=== PATIENT | male | born 1950 | race Caucasian/White ===

== ENCOUNTER → 2017-04-17 | Outpatient (CLI) | payer BC ==
[~2017-04-17] MED LIST: ASPI-435 PO; ATOR-26 PO; CINN1CAP2 PO; FISHOIL PO; GLIP-197 PO; LISI-725 PO; METF-384 PO; MULT-506 PO; NITR0.4S UT
[2017-04-17 09:38] LABS: HEMATOCRIT 50.4 % (42-52); MEAN CELL VOLUME 90.6 fL (80-100); MEAN CORPUSCULAR HGB CONC 33.1 g/dl (32-36); PLATELET COUNT 193 K/uL (130-400); RED BLOOD COUNT 5.56 M/uL (4.7-6.1); WHITE BLOOD COUNT 6.73 K/uL (4.8-10.8)
[2017-04-17 09:56] LABS: ESTIMATED AVERAGE GLUCOSE 163 mg/dl; HA1C FLAG Normal (Normal)
[2017-04-17 10:10] LABS: PROSTATE SPECIFIC ANTIGEN 1.03 ng/ml (0.000-4.000)
--- NOTE | 2017-04-22 11:16 | CODING QUERY MEDICAL NECESSITY ---
SUPPORTING DIAGNOSIS NEEDED A supporting diagnosis is required for the test/procedure performed on this patient in order for us to be reimbursed by the patient's insurance. Please provide a supporting diagnosis for the following test/procedure listed below next to the test name along with your signature. *If there is no additional diagnosis for this patient that would support the following test/procedure please document that below next to the test/procedure. Test(s)/Procedure(s) that require a supporting diagnosis: * PSA DIAGNOSIS: Provider Signature: Date: Thank you Erika Carson [employer] Once completed, please kindly fax back to [phone] For questions please call [phone]
== END | disposition home or self-care (01) ==
LOC: C.LAB 08:43
PROVIDERS: ATTEND Internal Medicine
DX: Z00.00 Encounter for general adult medical examination without abnormal findings (principal); I10 Essential (primary) hypertension; E78.5 Hyperlipidemia, unspecified; E11.8 Type 2 diabetes mellitus with unspecified complications; Z12.5 Encounter for screening for malignant neoplasm of prostate

== ENCOUNTER → 2017-10-08 | Outpatient (CLI) | payer BC ==
[2017-10-09 07:36] LABS: HEMOGLOBIN A1C 7.7 % (4.5-5.6)
== END | disposition home or self-care (01) ==
LOC: C.LAB1850 15:22
PROVIDERS: ATTEND Internal Medicine
DX: E11.8 Type 2 diabetes mellitus with unspecified complications (principal)

== ENCOUNTER → 2018-01-06 | Outpatient (CLI) | payer BC | END | disposition home or self-care (01) | LOC: C.LAB 17:14 | PROVIDERS: ATTEND Internal Medicine | DX: R21 Rash and other nonspecific skin eruption (principal) ==

== ENCOUNTER → 2018-01-07 | Outpatient (CLI) | payer OTHER, BC | END | disposition home or self-care (01) | LOC: C.CPL 09:04 | DX: S83.232D Complex tear of medial meniscus, current injury, left knee, subsequent encounter (principal); X58.XXXD Exposure to other specified factors, subsequent encounter ==

== ENCOUNTER → 2018-01-07 | Outpatient (CLI) | payer BC ==
[2018-01-07 10:03] LABS: HEMOGLOBIN A1C 7.8 % (4.5-5.6)
== END | disposition home or self-care (01) ==
LOC: C.LAB 09:02
PROVIDERS: ATTEND Internal Medicine
DX: E11.8 Type 2 diabetes mellitus with unspecified complications (principal)

== ENCOUNTER 2024-07-06 12:01 | Inpatient (IN) ==
[2024-07-06] MEDS: ALBUT/IPRATROP 3MG/0.5MG NEB 3 ML VIAL NEB STA (12:26)
[2024-07-06] MEDS: methylPREDNISolone 125 MG/2 ML VIAL IV STA (12:26)
[2024-07-06 12:49] LABS: iSTAT Creatinine 1.3 mg/dl (0.6-1.3); iSTAT Hemoglobin 13.3 g/dl (14.0-18.0); iSTAT Ionized Calcium 1.23 mmol/l (1.12-1.32); iSTAT Potassium 4.6 mmol/L (3.3-5.0)
[2024-07-06 12:50] LABS: Basophils # (auto) 0.06 K/uL (0.00-0.20); Basophils % (auto) 0.6 %; Eosinophils # (auto) 0.13 K/uL (0.00-0.50); Eosinophils % (auto) 1.2 %; Hematocrit (blood only) 37.6 % (42.0-52.0); Hemoglobin 12.7 g/dl (14.0-18.0); Immature Granulocytes # (auto) 0.05 K/uL (0.01-0.20); Immature Granulocytes % (auto) 0.5 %; Lymphocytes # (auto) 0.72 K/uL (1.20-3.40); Lymphocytes % (auto) 6.8 %; Mean Corpuscular Hemoglobin 30.4 pg (25.0-34.0); Mean Corpuscular Hgb Conc 33.8 g/dL (32.0-36.0); Mean Platelet Volume 9.6 fL (9.4-12.4); Monocytes # (auto) 0.72 K/uL (0.11-0.59); Monocytes % (auto) 6.8 %; Neutrophils # (auto) 8.87 K/uL (1.40-6.50); Neutrophils % (auto) 84.1 %; Platelet Count 290 K/uL (130-400); RDW Coefficient of Variation 13.4 % (11.5-14.5); RDW Standard Deviation 44.6 fL (36.4-46.3); Red Blood Count 4.18 M/uL (4.70-6.10); White Blood Count 10.55 K/ul (4.8-10.8)
[2024-07-06] MEDS: OPTIRAY 320 125ml IV ONE (12:59)
[2024-07-06] MEDS: PIPERACILLIN/TAZOBACTAM 4.5 GM/120 ML BAG IV ONE (13:11)
[2024-07-06 13:13] LABS: BUN Creatinine Ratio 13.5 (10-20); Calcium 9.6 mg/dl (8.6-10.3); Creatinine Clr Calc Pharmacy 49.5 ml/min; Potassium 4.6 mmol/L (3.5-5.1); Troponin I High Sensitivity 10.4 pg/ml (0-20)
[2024-07-06 13:17] LABS: Partial Thromboplastin Ratio 1.1; Partial Thromboplastin Time 29 Seconds (21-31); Prothrombin Time 10.4 Seconds (9.0-12.0)
[2024-07-06 13:25] LABS: Influenza A virus by PCR Negative (Neg); Influenza B virus by PCR Negative (Neg); RSV by PCR Negative (Neg); SARS CoV2 RNA(COVID-19) Ceph NEGATIVE (Negative)
--- NOTE | 2024-07-06 13:33 | CT Scan Report ---
CT angio chest PE protocol CT DOSE: 813.61 mGy.cm HISTORY: 73 years-old Male with Chest Pain, eval for PE. Acute chest pain and shortness of breath TECHNIQUE: Multiple CTA images of the chest were obtained after the intravenous administration of 119 ml Optiray. Coronal and sagittal MIPS were obtained from the axial data set and were submitted for review. All measurements were obtained according to NASCET criteria. A dose lowering technique was u tilized adhering to the principles of ALARA. COMPARISON: Chest radiograph of same day, chest CT 09/23/2023, 04/24/2024, PET/CT 06/13/2023 FINDINGS: CTA: Mild cardiomegaly. Trace pericardial effusion. Extensive coronary artery calcifications. No thoracic aortic aneurysm or dissection. Mild dilation of the pulmonary artery may represent pulmonary hyperten rosetta. Left IJ Adtldb-m-Sxoj catheter distal tip terminates within the left brachiocephalic vein just proximal to the confluence with the superior vena cava No pulmonary emboli identified. CT CHEST: Study is degraded by respiratory motion artifacts. 4.6 cm chronic right perihilar consolidation with involvement of the right upper lung redemonstrated. Pulmonary emphysema with bronchial wall thickenin g. There is a small left pleural effusion. Patchy multifocal left lung airspace opacities with irregu lar 3.9 Center focus of consolidation within the left lower lobe on image 120. Findings are new from 04/24/2024. Respiratory motion artifact limits the study. Contracted gallbladder. No acute upper abdominal abnormality. No acute fracture. No destructive bone lesions identified. IMPRESSION: 1. Study degraded by respiratory motion artifact. No pulmonary emboli identified. 2. Multifocal airspace opacities throughout the left lung compatible with multifocal pneumonia. Follo w-up chest CT after treatment course is needed in order to document resolution. 3. Small left parapneumonic effusion. 4. Unchanged irregular right perihilar/right upper lung consolidation, likely representing treated di sease. 5. Emphysema. 6. No lymphadenopathy. ACT 112: Negative or not required by law. The above report was generated using voice recognition software. It may contain grammatical, syntax o r spelling errors. Electronically signed by: Phoenix Brewer M.D. 07/06/2024 1:31 PM
--- NOTE | 2024-07-06 13:47 | XRay Report ---
XR chest 1V portable HISTORY: 73 years-old Male Chest pain, nonspecific COMPARISON: CTA chest of same day TECHNIQUE: AP view the chest FINDINGS: Cardiac silhouette is within normal limits. Chronic right perihilar/upper lobe opacity compatible wit h treated disease. Pulmonary emphysema. Multifocal airspace opacities throughout the left lung. Prior resection of the distal right clavicle. Probable chronic healed right clavicular fracture deformity. Unchanged positioning of the left pectoral Jprglx-y-Hrlx catheter. IMPRESSION: Multifocal left lung pneumonia. ACT 112: Negative or not required by law. The above report was generated using voice recognition software. It may contain grammatical, syntax o r spelling errors. Electronically signed by: Phoenix Brewer M.D. 07/06/2024 1:46 PM
[2024-07-06] MEDS ORDERED: PHARMACY GLYCEMIC MGMT CONSULT PRN (13:52)
--- NOTE | 2024-07-06 13:55 | History & Physical Report ---
Date of Service July 06, 2024 Assessment & Plan (1) Multifocal pneumonia: Plan: Worsening SR, productive cough, hemoptysis x 2 weeks CXR on arrival revealed multifocal left lower lung pneumonia Chest CTA without acute pulmonary emboli Zosyn x 1 given in the ED Rocephin 2000 mg IV q24h Azithromycin 500 mg p.o. QAM Promote good pulmonary hygiene A.m. CBC, BMP, mag (2) Sepsis: Plan: Pulmonary source; tachycardic + tachypneic on arrival Lactate 2.1 on arrival, repeat pending LR 1000 mL IV bolus x 1 in the ED Patient is normotensive/hypertensive on arrival and lactate is <4.0; do not feel that he requires additional IV fluids at this time Will encourage p.o. fluid intake in the setting of national IVF shortage Blood cultures drawn Procalcitonin ordered, pending MRSA swab ordered, pending (3) Acute hypoxic respiratory failure: Plan: SpO2 80% on RA on arrival Patient is not on supplemental oxygen at baseline Supplemental oxygen as needed to maintain SpO2 89-92% Continuous pulse oximetry (4) COPD exacerbation: Plan: Solu-Medrol 125 mg x 1 in the ED Solu-Medrol 40 mg IV QAM Guaifenesin 1200 mg p.o. BID for cough DuoNeb 3 mL q6R Flutter valve, incentive spirometry (5) Diabetes mellitus, type 2: Plan: Last A1c at 6.7% on 05/05/2024 Glucose 30 on admission Hold metformin, glipizide Patient reports that he normally takes Levemir 14u QAM Pharmacy glycemic consult in the setting of high-dose steroids SSI + Lantus T2DM diet BSG ACHS Adjust regimen as needed (6) Hypomagnesemia: Plan: Mild; mag 1.5 on arrival Magnesium sulfate 1 g IV x 2 Recheck a.m. mag (7) Hypertension: Plan: Continue amlodipine, losartan Plan [facility] Full code T2DM diet VTE PPx: Lovenox 40 mg SQ q24h History of Present Illness Chief Complaint: SOB/dyspnea Primary Care Provider: Kemar Kinney MD Fermin is a 73-year-old male with PMH of small cell lung cancer, T2DM, CAD, congenital absence of one kidney, HLD, HTN, and COPD. He presented on 07/06 for worsening SOB x 2 weeks. Patient reports that the SOB is only with exertion, and does not occur at rest. However, he has been having substantial productive cough x 2 weeks, and developed hemoptysis over the last week. Patient is not on blood thinners. He reports he has pink/yellow sputum mainly in the mornings, and has been taking Mucinex to break this up. His home pulse ox normally reads around SpO2 88-94%. He does not use supplemental oxygen at baseline. No CPAP at night. He is a former smoker (40 years), but reports that he quit. No recent alcohol use. No sick contacts. Patient took his regular morning medication today, including his Levemir 14u; no recent change in medications. He does report that his albuterol inhaler and DuoNeb do help with his symptoms at home. He also used a flutter valve this morning. While he denies orthopnea, he does report that he has coughing fits whenever he lies on his right side. No prior history of DVT/PE to his knowledge. Patient is tachycardic at 106 bpm at time of admission; SpO2 95% on 5L oxymask. ED course: DuoNeb 3 mL Methylprednisolone 125 mg IV Zosyn 4.5 g IV ROS: Patient endorses worsening SR, wheezing, productive cough (yellow / pink sputum), and hemoptysis (mainly in the mornings). Patient denies fever, chills, night-sweats, dizziness/lightheadedness, BARKER, syncope, chest pain, pleuritic CP, SOB at rest, orthopnea, abdominal pain, N/V/D, changes in urinary/bowel habits, dysuria, blood in the urine or stool, or numbness or tingling in the arms or legs. Allergies Allergy/AdvReac Type Severity Reaction Status Date / Time levofloxacin AdvReac Intermediate Hallucinati Verified 07/06/24 14:42 ng atorvastatin AdvReac myalgia Verified 07/06/24 14:42 dulaglutide [From Trulicity] AdvReac Nausea Verified 07/06/24 14:42 empagliflozin AdvReac Elevated Verified 07/06/24 14:42 [From Jardiance] creatinine pravastatin AdvReac myalgia Verified 07/06/24 14:42 Home Medications Medication Instructions Recorded Confirmed Type blood sugar diagnostic (OneTouch #10 ea 06/29/20 05/05/24 History Ultra Blue Test Strip) nitroglycerin 0.4 mg sublingual 1 mg (2.5 x 0.4 mg) sublingual 12/14/21 07/06/24 Rx tablet (Nitrostat) DIRECTED PRN Angina #60 tabs pen needle, diabetic 32 gauge x #100 ea 01/31/22 05/05/24 Rx 5/32" (BD Ultra-Fine Ela Pen Needle) inhalational spacing device #1 ea 10/19/22 05/05/24 Rx (BreatheRite MDI Spacer) cinnamon bark extract 500 mg tablet 500 mg PO QAM 12/25/22 07/06/24 History vit C 250 mg-vit E 90 mg-zinc 40 1 tab PO DAILY 12/25/22 07/06/24 History mg-copper 1 im-yjlqti-vroalv capsule (PreserVision AREDS-2) sertraline 25 mg tablet 25 mg PO QAM 04/03/23 07/06/24 History Flutter Valve #1 ea 04/04/23 05/05/24 Rx glipizide 10 mg tablet 10 mg PO BID #180 tabs 07/30/23 07/06/24 Rx metformin 1,000 mg tablet 1,000 mg PO BID #180 tabs 10/23/23 07/06/24 Rx albuterol sulfate 90 mcg/actuation 1 - 2 inh inhalation Q4H PRN 02/20/24 07/06/24 Rx aerosol inhaler shortness of breath or wheezing #8.5 grams Levemir FlexPen 100 unit/mL (3 mL) 14 - 16 unit (0.14 - 0.16 mL) 03/11/24 07/06/24 Rx solution subcutaneous insulin pen subcut QAM #15 mL (insulin detemir U-100) losartan 100 mg tablet 100 mg PO QAM #90 tabs 04/27/24 07/06/24 Rx albuterol sulfate 2.5 mg/0.5 mL 2.5 mg (0.5 mL) inhalation Q6H PRN 06/23/24 07/06/24 Rx solution for nebulization shortness of breath or wheezing #30 ea amlodipine 10 mg tablet 10 mg PO QAM 07/06/24 07/06/24 History aspirin 81 mg tablet,delayed 81 mg PO QAM 07/06/24 07/06/24 History release budesonide-formoterol HFA 80 1 inh inhalation BID PRN Shortness 07/06/24 07/06/24 History mcg-4.5 mcg/actuation aerosol Of Breath Or Wheezing inhaler (Symbicort) ipratropium 0.5 mg-albuterol 3 mg 3 ml inhalation BID 07/06/24 07/06/24 History (2.5 mg base)/3 mL nebulization soln Past Med/Surg History Problem List (Updated 07/07/24 @ 11:16 by Ivan Vivas PA-C) Hemoptysis Parapneumonic effusion Pneumonia (Acute) Hypoxia (Acute) Hypomagnesemia Acute hypoxic respiratory failure Sepsis COPD exacerbation Multifocal pneumonia Diabetes mellitus, type 2 IDDM 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) Hyperlipidemia (Chronic) Hypertension (Chronic) Diverticulosis (Chronic) Arteriosclerotic cardiovascular disease (ASCVD) (Chronic) Vitamin B12 deficiency (Chronic) Vitamin D deficiency (Chronic) SOB (shortness of breath) (Chronic) Proteinuria (Chronic) Pleural thickening (Chronic) Peyronie's disease (Chronic) Diabetes mellitus type 2 with complications (Chronic) Health care maintenance COPD (chronic obstructive pulmonary disease) Pulmonary nodule Statin myopathy (Acute) Low TSH level Abnormal chest CT Abnormal PET of right lung Small cell lung cancer in adult (Chronic) Biopsy on 11/30/22 Lumbar spinal stenosis (Chronic) Chronic bronchitis with emphysema (Chronic) History of cardiac catheterization (Acute) 2011--@ [facility]--with 1 stent placed CAD (coronary artery disease) (Acute) S/p stent to LCx 2011 Known RCA occlusion per cardio records Follows with Dr. Ya Congenital absence of one kidney (Chronic) Medical History Right-sided chest pain Status post chemotherapy currently on chemo every 2 weeks Esophagitis Elevated serum creatinine Lung nodule Lung cancer Dizziness Myalgia due to statin Current smoker Skin lesion of face Hearing deficit Chronic obstructive pulmonary disease inhalers prn Abnormal TSH TSH low at 0.28 but Free T4 WNL 04/2022 Diabetic peripheral neuropathy Smokes less than 1/2 pack per day Peyronie's disease High cholesterol HTN (hypertension) Surgical History Port-A-Cath in place (01/16/23) Insertion Access Port with Fluoroscopy, left subclavian (Left) - Santos Acevedo DO History of bronchoscopy 11/201811/30/22 History of lumbar laminectomy History of repair of right rotator cuff History of arthroscopy of left knee History of arthroscopy of right knee meniscus repair Hx of vasectomy History of right inguinal hernia repair History of colonoscopy with polypectomy History of tooth extraction History of heart artery stent 2011 @ [facility] S/P tonsillectomy and adenoidectomy Family History Father , 87yo Diabetes Heart disease Angina pectoris Myocardial infarction Grandmother (Maternal) Colorectal cancer Mother , 80yo Emphysema, unspecified Sister No problems noted. Sister , 3yo Leukemia Sister No problems noted. Sister No problems noted. Sister No problems noted. Sister No problems noted. Son No problems noted. Son No problems noted. Son No problems noted. Daughter No problems noted. Other No family history of adverse response to anesthesia Denies family history of Ovarian cancer Prostate cancer Breast cancer Social History Smoking Status: Never smoker Tobacco Type: Cigarettes Age Started Using Tobacco: 27; Age Quit Using Tobacco: 71; Cigarettes Per Day: 2-3 per day -advised; Second Hand Exposure: No; Do You Dip or Chew Tobacco: No; Tobacco Cessation Education Requested by Patient: No Hx Alcohol Use: No Hx Substance Use: No Preferred Language: Swedish Communication Ability: Effective Visual Impairment: No Limitations Hearing Ability: Use of Hearing Aid Research Contracts Supervisor Required: No Beliefs That Will Affect Care: None marital status: Current Living Situation: Alone current occupational status: retired 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 [employer] How many Children do You have: 0 Other Information That Helps Us Care for You: No Feels Safe at Home: Yes Safety Concerns: Feels Safe At This Time Childhood Exposure to Second-Hand Smoke: Yes Diet: diabetic caffeine: Yes (1 cup/day) during the past year weight has: remained stable Dental Care, Regularly: Yes Physical Activity Frequency: Daily Seatbelt Use: always Sunscreen Use: No Assistive Devices: Glasses Review of Systems Review of Systems: See HPI above Physical Exam Physical Exam: General: Mild respiratory distress; pleasant affect; non-toxic appearing; well- nourished; cooperative; SpO2 91% on 3L NC HEENT: normocephalic, atraumatic; no scleral icterus; PERRLA w/ EOMs intact; vision and hearing grossly intact Neck: supple; no lymphadenopathy; trachea midline Skin: warm, dry without signs of tenting; no cyanosis; no rashes, bruising, lesions, or erythema noted CV: chest wall NTP; RRR; S1/S2 normal; no murmurs/rubs/gallops; pulses intact and symmetric at radial, DP, and PT Lungs: Mild respiratory distress; conversational dyspnea; wheezing; coughing fits; symmetrical chest wall expansion; bibasilar crackles in the lower lung zhu bilaterally (L>R) ABD: Soft, NTP; BS present; no rebound/guarding; no distention MSK: no tics or fasciculations; +2 pitting edema noted in the LEs b/l, nonerythematous Neuro: A&Ox3; normal mood and affect; fluent speech; no focal deficits; sensat ion intact and symmetric in the lower extremities bilaterally Results & Data Results & Data Vital Signs (Past 12 Hours) Vital Signs Temp Pulse Pulse Resp BP BP Pulse Ox 07/06/24 12:37 106 H 07/06/24 12:19 106 H 23 95 07/06/24 12:19 108 H 19 126/73 95 07/06/24 12:19 95 07/06/24 12:03 36.6 C 117 H 22 136/77 80 L O2 Del Method O2 Flow Rate 07/06/24 12:37 07/06/24 12:19 Oxymask 5 07/06/24 12:19 Oxymask 5 07/06/24 12:19 Oxymask 5 07/06/24 12:03 Room Air Laboratory Results Abnormal lab results 07/06/24 07/06/24 Range/Units 12:15 12:23 RBC 4.18 L (4.70-6.10) M/uL Hgb 12.7 L (14.0-18.0) g/dl POC Hgb 13.3 L (14.0-18.0) g/dl Hct 37.6 L (42.0-52.0) % POC Hct 39 L (42-52) % Neut # (Auto) 8.87 H (1.40-6.50) K/uL Lymph # (Auto) 0.72 L (1.20-3.40) K/uL [place] # (Auto) 0.72 H (0.11-0.59) K/uL POC Sodium 133 L (135-144) mmol/L Sodium 131 L (136-145) mmol/L POC Chloride 97 L (101-112) mmol/L POC Total CO2 22 L (24-31) mmol/L Glucose 304 H* (70-99(Fasting)) mg/dl POC Glucose (other) 303 H (70-99) mg/dl Diagnostic Findings Chest CTA 07/06/24 12:07 CT angio chest PE protocol CT DOSE: 813.61 mGy.cm HISTORY: 73 years-old Male with Chest Pain, eval for PE. Acute chest pain and shortness of breath TECHNIQUE: Multiple CTA images of the chest were obtained after the intravenous administration of 119 ml Optiray. Coronal and sagittal MIPS were obtained from the axial data set and were submitted for review. All measurements were obtained according to NASCET criteria. A dose lowering technique was utilized adhering to the principles of ALARA. COMPARISON: Chest radiograph of same day, chest CT 09/23/2023, 04/24/2024, PET/CT 06/13/2023 FINDINGS: CTA: Mild cardiomegaly. Trace pericardial effusion. Extensive coronary artery calcifications. No thoracic aortic aneurysm or dissection. Mild dilation of the pulmonary artery may represent pulmonary hypertension. Left IJ Rcfgle-s-Fwfn catheter distal tip terminates within the left brachiocephalic vein just proximal to the confluence with the superior vena cava No pulmonary emboli identified. CT CHEST: Study is degraded by respiratory motion artifacts. 4.6 cm chronic right perihilar consolidation with involvement of the right upper lung redemonstrated. Pulmonary emphysema with bronchial wall thickening. There is a small left pleural effusion. Patchy multifocal left lung airspace opacities with irregular 3.9 Center focus of consolidation within the left lower lobe on image 120. Findings are new from 04/24/2024. Respiratory motion artifact limits the study. Contracted gallbladder. No acute upper abdominal abnormality. No acute fracture. No destructive bone lesions identified. IMPRESSION: 1. Study degraded by respiratory motion artifact. No pulmonary emboli identified. 2. Multifocal airspace opacities throughout the left lung compatible with multifocal pneumonia. Follow-up chest CT after treatment course is needed in order to document resolution. 3. Small left parapneumonic effusion. 4. Unchanged irregular right perihilar/right upper lung consolidation, likely representing treated disease. 5. Emphysema. 6. No lymphadenopathy. ACT 112: Negative or not required by law. The above report was generated using voice recognition software. It may contain grammatical, syntax or spelling errors. Electronically signed by: Phoenix Brewer M.D. 07/06/2024 1:31 PM Chest X-Ray 07/06/24 12:07 XR chest 1V portable HISTORY: 73 years-old Male Chest pain, nonspecific COMPARISON: CTA chest of same day TECHNIQUE: AP view the chest FINDINGS: Cardiac silhouette is within normal limits. Chronic right perihilar/upper lobe opacity compatible with treated disease. Pulmonary emphysema. Multifocal airspace opacities throughout the left lung. Prior resection of the distal right clavicle. Probable chronic healed right clavicular fracture deformity. Unchanged positioning of the left pectoral Lftojd-s-Dtpo catheter. IMPRESSION: Multifocal left lung pneumonia. ACT 112: Negative or not required by law. The above report was generated using voice recognition software. It may contain grammatical, syntax or spelling errors. Electronically signed by: Phoenix Brewer M.D. 07/06/2024 1:46 PM ECG Additional Comments: ECG revealed sinus tachycardia at 108 bpm; QTc 423 Code Status & VTE Plan Code Status Full code VTE Prophylaxis Plan VTE Prophylaxis will be ordered: Yes Supervising Physician Co-Signing Physician Notes I personally saw and examined the patient. I independently reviewed the labs, EKG, imaging, problem list, medication list, past medical history and family history. I verified all vance points and agree with Zak Baer PA-C with the following exceptions and/or additions: 73 year old presents to the ER with shortness of breath on exertion. Coughing up yellow sputum. No chest pain. O/E HS RRR, no murmurs, Chest - expiratory wheezing, left posterior coarse crackles, Abdo SNT, trace pedal edema A/P Sepsis / COPD exacerbation / multifocal pneumonia - MRSA nasal swab negative. Add biofire PCR, sputum culture ordered, WBC and procalcitonin WNL. Ceftriaxone + azithromycin. Solu-medrol 40mg IV. Duonebs q6h PG Care Time/CCT Total # of Minutes Spent Total Time Spent with Patient: Total time spent is greater than 50% in coordination of care (as documented) at patient's floor/unit and/or counseling patient: Coding [place] [address] INT INP/OBS CARE 3/75MIN Patient Type Established Medical Decision Making High Complexity Diagnoses Multifocal pneumonia J18.9 Sepsis A41.9 Acute hypoxic respiratory failure J96.01 COPD exacerbation J44.1 Diabetes mellitus, type 2 E11.9 Hypomagnesemia E83.42 Hypertension I10
[2024-07-06 14:28] LABS: C Reactive Protein 19.71 mg/dl (0-0.5); Magnesium 1.5 mg/dl (1.7-2.4)
[2024-07-06] MEDS ORDERED: GLUCOSE 10 TAB/TUBE PO PRN ×2 (14:45→17:44)
[2024-07-06] MEDS ORDERED: CARBOHYDRATES FOR HYPOGLYCEMIA PO PRN (14:45)
[2024-07-06] MEDS ORDERED: DEXTROSE 50% 50 ML SYRINGE IV PRN ×2 (14:45→17:44)
[2024-07-06] MEDS ORDERED: GLUCAGON FOR INJ 1 MG VIAL SQ PRN ×2 (14:45→17:44)
[2024-07-06] MEDS ORDERED: GLUCOSE 40% GEL 15 GM TUBE PO PRN ×2 (14:45→17:44)
[2024-07-06] MEDS: LACTATED RINGER'S 1,000 ML IV ONE (14:55)
--- NOTE | 2024-07-06 15:03 | Pharmacy Report ---
Pharmacy Glycemic Short Note 2 - Date of Service July 06, 2024 - Glycemic Short BSG Results (Last 24 hours): 07/06/24 07/06/24 12:15 12:23 Glucose 304 H* POC Glucose (other) 303 H OUTPATIENT ANTIDIABETIC REGIMEN: * Levemir 14-16 units daily (last dose 14 units AM of 07/06) * Glipizide 10mg po bid * Metformin 1000mg po bid HbA1c: 6.7% on 05/05/24 ASSESSMENT: * 73 year old male admitted for multifocal pneumonia/sepsis. On arrival to ED, BSG is > 300 (303 mg/dL) despite already having 14 units of Levemir insulin prior to arrival. He then received 125mg iv methylprednisolone x 1, and is now ordered methylprednisolone 40mg iv q 24 hours. * 10units of Lantus x 1 has been ordered for this afternoon, then Lantus 20 units daily starting tomorrow (increase from his home insulin dosing due to presence of steroids.) * Weight based bolus insulin with a stress factor of 3 has been ordered to start this afternoon, then will be AC and HS. PLAN FOR INPATIENT GLYCEMIC CONTROL: * Hold outpatient diabetes medications * Basal insulin * Lantus 10 units SQ x 1 this afternoon * Lantus 20units SQ daily starting 07/07 * Bolus insulin * NovoLog per scale ACHS or Q6hrs while NPO * Goal Range: Low 110 mg/dL - High 140 mg/dL * Correction Factor: 20 mg/dL/unit * Nutritional / Prandial insulin per carb ratio of 1 unit per 6 grams CHO consumed
[2024-07-06] MEDS: AZITHROMYCIN 250 MG TAB PO ONE (15:18)
[2024-07-06] MEDS: LANTUS PER UNIT CHARGE SC ONE (15:19)
[2024-07-06] MEDS: INSULIN ASPART PER UNIT CHARGE SC ONE (15:19)
[2024-07-06 15:25] LABS: iSTAT Arterial Blood Gas HCO3 22 meg/L (19-24); iSTAT Arterial Blood Gas pCO2 37 mmHg (35-46); iSTAT Arterial Blood Gas pH 7.38 (7.35-7.45); iSTAT Arterial Blood Gas pO2 90 mmHg (80-95); iSTAT Carbon Dioxide 23 mmol/L (24-31); iSTAT Hematocrit 36 % (42-52); iSTAT Hemoglobin 12.2 g/dl (14.0-18.0); iSTAT Potassium 4.6 mmol/L (3.3-5.0); iSTAT Sample Type Arterial; iSTAT Sodium 131 mmol/L (135-144)
[2024-07-06] MEDS: MAGNESIUM SULFATE / D5W 1 GM/100 ML BAG IV SCH (15:39)
[2024-07-06] MEDS ORDERED: FLUTICASONE/VILANTEROL 100/25MCG 14 PUFFS/INHALER INH PRN (17:44)
[2024-07-06] MEDS ORDERED: ACETAMINOPHEN 325 MG TAB PO PRN (17:44)
[2024-07-06] MEDS: INSULIN ASPART PER UNIT CHARGE SC SCH (18:10)
--- NOTE | 2024-07-06 18:15 | Emergency Department Note ---
History of Present Illness General Chief Complaint: Shortness of Breath/Dyspnea Stated Complaint: COUGH, SOB, SPITTING UP BLOOD Time Seen by Provider: 07/06/24 12:06 History of Present Illness Provider Complaint: shortness of breath and cough Onset (ago): day(s) (2) Severity: severe Consistency/Duration: + progressively worsening Relieved By: + nothing Exacerbated By: + exertion and + coughing Known history of: COPD Associated symptoms: + sputum production, + hemoptysis and + chest congestion; no chest pain, no nausea/vomiting or no abdominal pain Treatment prior to arrival: none Related Data Home oxygen amount: none Home Medications Medication Instructions Recorded Confirmed Type blood sugar diagnostic (OneTouch #10 ea 06/29/20 05/05/24 History Ultra Blue Test Strip) nitroglycerin 0.4 mg sublingual 1 mg (2.5 x 0.4 mg) sublingual 12/14/21 07/06/24 Rx tablet (Nitrostat) DIRECTED PRN Angina #60 tabs pen needle, diabetic 32 gauge x #100 ea 01/31/22 05/05/24 Rx 5/32" (BD Ultra-Fine Ela Pen Needle) inhalational spacing device #1 ea 10/19/22 05/05/24 Rx (BreatheRite MDI Spacer) cinnamon bark extract 500 mg tablet 500 mg PO QAM 12/25/22 07/06/24 History vit C 250 mg-vit E 90 mg-zinc 40 1 tab PO DAILY 12/25/22 07/06/24 History mg-copper 1 up-fyclnd-lwifzi capsule (PreserVision AREDS-2) sertraline 25 mg tablet 25 mg PO QAM 04/03/23 07/06/24 History Flutter Valve #1 ea 04/04/23 05/05/24 Rx glipizide 10 mg tablet 10 mg PO BID #180 tabs 07/30/23 07/06/24 Rx metformin 1,000 mg tablet 1,000 mg PO BID #180 tabs 10/23/23 07/06/24 Rx albuterol sulfate 90 mcg/actuation 1 - 2 inh inhalation Q4H PRN 02/20/24 07/06/24 Rx aerosol inhaler shortness of breath or wheezing #8.5 grams Levemir FlexPen 100 unit/mL (3 mL) 14 - 16 unit (0.14 - 0.16 mL) 03/11/24 07/06/24 Rx solution subcutaneous insulin pen subcut QAM #15 mL (insulin detemir U-100) losartan 100 mg tablet 100 mg PO QAM #90 tabs 04/27/24 07/06/24 Rx albuterol sulfate 2.5 mg/0.5 mL 2.5 mg (0.5 mL) inhalation Q6H PRN 06/23/24 07/06/24 Rx solution for nebulization shortness of breath or wheezing #30 ea amlodipine 10 mg tablet 10 mg PO QAM 07/06/24 07/06/24 History aspirin 81 mg tablet,delayed 81 mg PO QAM 07/06/24 07/06/24 History release budesonide-formoterol HFA 80 1 inh inhalation BID PRN Shortness 07/06/24 07/06/24 History mcg-4.5 mcg/actuation aerosol Of Breath Or Wheezing inhaler (Symbicort) ipratropium 0.5 mg-albuterol 3 mg 3 ml inhalation BID 07/06/24 07/06/24 History (2.5 mg base)/3 mL nebulization soln Allergies Allergy/AdvReac Type Severity Reaction Status Date / Time levofloxacin AdvReac Intermediate Hallucinati Verified 07/06/24 14:42 ng atorvastatin AdvReac myalgia Verified 07/06/24 14:42 dulaglutide [From Trulicity] AdvReac Nausea Verified 07/06/24 14:42 empagliflozin AdvReac Elevated Verified 07/06/24 14:42 [From Jardiance] creatinine pravastatin AdvReac myalgia Verified 07/06/24 14:42 Past Med/Surg History Problem List (Updated 07/06/24 @ 18:15 by Berto Huizar MD) Pneumonia (Acute) Hypoxia (Acute) Hypomagnesemia Acute hypoxic respiratory failure Sepsis COPD exacerbation Multifocal pneumonia Diabetes mellitus, type 2 IDDM 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) Hyperlipidemia (Chronic) Hypertension (Chronic) Diverticulosis (Chronic) Arteriosclerotic cardiovascular disease (ASCVD) (Chronic) Vitamin B12 deficiency (Chronic) Vitamin D deficiency (Chronic) SOB (shortness of breath) (Chronic) Proteinuria (Chronic) Pleural thickening (Chronic) Peyronie's disease (Chronic) Diabetes mellitus type 2 with complications (Chronic) Health care maintenance COPD (chronic obstructive pulmonary disease) Pulmonary nodule Statin myopathy (Acute) Low TSH level Abnormal chest CT Abnormal PET of right lung Small cell lung cancer in adult (Chronic) Biopsy on 11/30/22 Lumbar spinal stenosis (Chronic) Chronic bronchitis with emphysema (Chronic) History of cardiac catheterization (Acute) 2011--@ [facility]--with 1 stent placed CAD (coronary artery disease) (Acute) S/p stent to LCx 2011 Known RCA occlusion per cardio records Follows with Dr. Ya Congenital absence of one kidney (Chronic) Medical History Right-sided chest pain Status post chemotherapy currently on chemo every 2 weeks Esophagitis Elevated serum creatinine Lung nodule Lung cancer Dizziness Myalgia due to statin Current smoker Skin lesion of face Hearing deficit Chronic obstructive pulmonary disease inhalers prn Abnormal TSH TSH low at 0.28 but Free T4 WNL 04/2022 Diabetic peripheral neuropathy Smokes less than 1/2 pack per day Peyronie's disease High cholesterol HTN (hypertension) Surgical History Port-A-Cath in place (01/16/23) Insertion Access Port with Fluoroscopy, left subclavian (Left) - Santos Acevedo DO History of bronchoscopy 11/201811/30/22 History of lumbar laminectomy History of repair of right rotator cuff History of arthroscopy of left knee History of arthroscopy of right knee meniscus repair Hx of vasectomy History of right inguinal hernia repair History of colonoscopy with polypectomy History of tooth extraction History of heart artery stent 2011 @ [facility] S/P tonsillectomy and adenoidectomy Family History Father , 87yo Diabetes Heart disease Angina pectoris Myocardial infarction Grandmother (Maternal) Colorectal cancer Mother , 80yo Emphysema, unspecified Sister No problems noted. Sister , 3yo Leukemia Sister No problems noted. Sister No problems noted. Sister No problems noted. Sister No problems noted. Son No problems noted. Son No problems noted. Son No problems noted. Daughter No problems noted. Other No family history of adverse response to anesthesia Denies family history of Ovarian cancer Prostate cancer Breast cancer Social History Smoking Status: Never smoker Tobacco Type: Cigarettes Age Started Using Tobacco: 27; Age Quit Using Tobacco: 71; Cigarettes Per Day: 2-3 per day -advised; Second Hand Exposure: No; Do You Dip or Chew Tobacco: No; Tobacco Cessation Education Requested by Patient: No Hx Alcohol Use: No Hx Substance Use: No Preferred Language: Moldovan Communication Ability: Effective Visual Impairment: No Limitations Hearing Ability: Use of Hearing Aid Monitor Car Operator Required: No Beliefs That Will Affect Care: None marital status: Current Living Situation: Alone current occupational status: retired 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 [employer] How many Children do You have: 0 Other Information That Helps Us Care for You: No Feels Safe at Home: Yes Safety Concerns: Feels Safe At This Time Childhood Exposure to Second-Hand Smoke: Yes Diet: diabetic caffeine: Yes (1 cup/day) during the past year weight has: remained stable Dental Care, Regularly: Yes Physical Activity Frequency: Daily Seatbelt Use: always Sunscreen Use: No Assistive Devices: Glasses and Hearing Aid - Bilateral Physical Exam 2 Vital Signs: Vital Signs - 24 hr 07/06/24 12:03 07/06/24 12:19 07/06/24 12:19 Temperature 36.6 C Temperature Source Temporal Artery Sc an Pulse Rate 117 H Pulse Rate [Apical ] 108 H Pulse Rate from Sp O2 Sensor Respiratory Rate 22 19 Respiratory Effort / Characteristics Non-Labored Sponta neous Respiratory Depth Normal Blood Pressure 136/77 Blood Pressure [Ri ght Arm] 126/73 Blood Pressure Shakira n 96 Blood Pressure Shakira n [Right Arm] 90 Blood Pressure Pos ition Sitting Pulse Oximetry 80 L 95 95 Oxygen Delivery Me thod Room Air Oxymask Oxymask Oxygen Flow Rate 5 5 Sepsis Recent Feve r Within 48 Hours No Sepsis New/Unexpla ined Change in Men caesar Status No Sepsis Action Take n by Nursing Physician Notified 07/06/24 12:19 07/06/24 12:37 07/06/24 12:42 Temperature Temperature Source Pulse Rate 106 H 106 H 103 H Pulse Rate [Apical ] Pulse Rate from Sp O2 Sensor 103 H Respiratory Rate 23 24 Respiratory Effort / Characteristics Respiratory Depth Blood Pressure Blood Pressure [Ri ght Arm] Blood Pressure Shakira n Blood Pressure Shakira n [Right Arm] Blood Pressure Pos ition Pulse Oximetry 95 96 Oxygen Delivery Me thod Oxymask Oxygen Flow Rate 5 Sepsis Recent Feve r Within 48 Hours Sepsis New/Unexpla ined Change in Men caesar Status Sepsis Action Take n by Nursing 07/06/24 13:09 07/06/24 13:15 07/06/24 13:24 Temperature Temperature Source Pulse Rate 103 H 102 H 100 H Pulse Rate [Apical ] Pulse Rate from Sp O2 Sensor 102 H 101 H 100 H Respiratory Rate 21 16 24 Respiratory Effort / Characteristics Respiratory Depth Blood Pressure Blood Pressure [Ri ght Arm] Blood Pressure Shakira n Blood Pressure Shakira n [Right Arm] Blood Pressure Pos ition Pulse Oximetry 96 97 96 Oxygen Delivery Me thod Oxygen Flow Rate Sepsis Recent Feve r Within 48 Hours Sepsis New/Unexpla ined Change in Men caesar Status Sepsis Action Take n by Nursing 07/06/24 13:30 07/06/24 13:30 07/06/24 13:30 Temperature Temperature Source Pulse Rate 99 H Pulse Rate [Apical ] Pulse Rate from Sp O2 Sensor 98 H Respiratory Rate 22 Respiratory Effort / Characteristics Respiratory Depth Blood Pressure 132/77 132/77 Blood Pressure [Ri ght Arm] Blood Pressure Shakira n 90 90 Blood Pressure Shakira n [Right Arm] Blood Pressure Pos ition Pulse Oximetry 96 Oxygen Delivery Me thod Oxygen Flow Rate Sepsis Recent Feve r Within 48 Hours Sepsis New/Unexpla ined Change in Men caesar Status Sepsis Action Take n by Nursing 07/06/24 13:51 07/06/24 13:57 07/06/24 14:00 Temperature Temperature Source Pulse Rate 100 H 100 H Pulse Rate [Apical ] Pulse Rate from Sp O2 Sensor 100 H 100 H Respiratory Rate 24 21 Respiratory Effort / Characteristics Respiratory Depth Blood Pressure 131/78 Blood Pressure [Ri ght Arm] Blood Pressure Shakira n 95 Blood Pressure Shakira n [Right Arm] Blood Pressure Pos ition Pulse Oximetry 96 95 Oxygen Delivery Me thod Oxygen Flow Rate Sepsis Recent Feve r Within 48 Hours Sepsis New/Unexpla ined Change in Men caesar Status Sepsis Action Take n by Nursing 07/06/24 14:00 07/06/24 14:00 07/06/24 14:03 Temperature Temperature Source Pulse Rate 100 H Pulse Rate [Apical ] Pulse Rate from Sp O2 Sensor 101 H Respiratory Rate 19 Respiratory Effort / Characteristics Respiratory Depth Blood Pressure 131/78 131/78 Blood Pressure [Ri ght Arm] Blood Pressure Shakira n 95 95 Blood Pressure Shakira n [Right Arm] Blood Pressure Pos ition Pulse Oximetry 95 Oxygen Delivery Me thod Oxygen Flow Rate Sepsis Recent Feve r Within 48 Hours Sepsis New/Unexpla ined Change in Men caesar Status Sepsis Action Take n by Nursing 07/06/24 14:12 07/06/24 14:18 07/06/24 14:30 Temperature Temperature Source Pulse Rate 101 H 100 H Pulse Rate [Apical ] Pulse Rate from Sp O2 Sensor 103 H 100 H Respiratory Rate 19 19 Respiratory Effort / Characteristics Respiratory Depth Blood Pressure 132/73 Blood Pressure [Ri ght Arm] Blood Pressure Shakira n 90 Blood Pressure Shakira n [Right Arm] Blood Pressure Pos ition Pulse Oximetry 95 93 Oxygen Delivery Me thod Oxygen Flow Rate Sepsis Recent Feve r Within 48 Hours Sepsis New/Unexpla ined Change in Men caesar Status Sepsis Action Take n by Nursing 07/06/24 14:33 Temperature Temperature Source Pulse Rate 103 H Pulse Rate [Apical ] Pulse Rate from Sp O2 Sensor 103 H Respiratory Rate 17 Respiratory Effort / Characteristics Respiratory Depth Blood Pressure Blood Pressure [Ri ght Arm] Blood Pressure Shakira n Blood Pressure Shakira n [Right Arm] Blood Pressure Pos ition Pulse Oximetry 94 Oxygen Delivery Me thod Oxygen Flow Rate Sepsis Recent Feve r Within 48 Hours Sepsis New/Unexpla ined Change in Men caesar Status Sepsis Action Take n by Nursing Physical Exam: Physical Exam GENERAL: oriented to person, place, and time. appears well-developed and well- nourished. HENT: Exam performed. - Head: Normocephalic and atraumatic. EYES: Conjunctivae and EOM are normal. Right eye exhibits no discharge. Left eye exhibits no discharge. No scleral icterus. NECK: Normal range of motion. Neck supple. No JVD present. CV: Normal rate, regular rhythm, normal heart sounds and intact distal pulses. There is no peripheral edema. Palpable radial pulses bue. PULM/CHEST: Expiratory wheezes bilaterally. ABD: The abdomen is soft. There is no tenderness. NEURO: Motor and sensation grossly intact. SKIN: Skin is warm and dry. He is not diaphoretic. PSYCH: normal mood and affect. Behavior is normal. Judgment and thought content normal. Course Course 1206: The patient was evaluated in room A11. A complete history and physical exam was performed Cardiac monitoring: An order was placed for continuous cardiac monitoring. The monitor shows a rate of 110 with sinus tachycardia rhythm interpreted by me Patient found to be hypoxic on room air. Supplemental oxygen was applied to the patient which improved the patient's oxygen saturation. 1300: Chest x-ray shows left-sided pneumonia. Patient be treated with IV antibiotics. 1345: Vital signs stable on supplemental oxygen. Labs are unremarkable. Imaging shows no pulmonary embolus but does show left-sided infiltrate. Patient treated with IV antibiotics and will be admitted to the [place] [facility] team. Administered Medications Magnesium Sulfate/Dextrose (Magnesium Sulfate / D5w) 1 gm in 100 mls @ 50 mls/hr IV Q2H IQRA Stop: 07/06/24 18:59 Last Admin: 07/06/24 17:47 Dose: 50 mls/hr Documented By: Infusion: 07/06/24 17:39 Dose: Infused Documented By: Admin: 07/06/24 15:39 Dose: 50 mls/hr Documented By: NELDA Discontinued Medications Albuterol (Albut/Ipratrop 3mg/0.5mg Neb 3 Ml Vial) 3 ml NEB NOW STA; Protocol Stop: 07/06/24 12:12 Last Admin: 07/06/24 12:26 Dose: 3 ml Documented By: NELDA Azithromycin (Azithromycin 250 Mg Tab) 500 mg PO NOW ONE Stop: 07/06/24 14:43 Last Admin: 07/06/24 15:18 Dose: 500 mg Documented By: NELDA Piperacillin Sod/Tazobactam Sod (Zosyn) 4.5 gm in 120 mls @ 240 mls/hr IV NOW ONE Stop: 07/06/24 13:34 Last Infusion: 07/06/24 13:47 Dose: Infused Documented By: Admin: 07/06/24 13:11 Dose: 240 mls/hr Documented By: NELDA Lactated Ringer's (Lr) 1,000 mls @ 999 mls/hr IV .Q1H1M ONE Stop: 07/06/24 14:54 Last Infusion: 07/06/24 17:50 Dose: Infused Documented By: Admin: 07/06/24 14:55 Dose: 999 mls/hr Documented By: NELDA Insulin Aspart (Insulin Aspart Per Unit Charge) 0 units SC ONE ONE Stop: 07/06/24 15:01 Last Admin: 07/06/24 15:19 Dose: 9 units Documented By: NELDA Co-signed By: MARICEL Insulin Glargine (Lantus Per Unit Charge) 10 units SC ONE ONE Stop: 07/06/24 15:01 Last Admin: 07/06/24 15:19 Dose: 10 units Documented By: NELDA Co-signed By: MARICEL Ioversol (Optiray 320 125ml) 120 ml IV ONCE ONE Stop: 07/06/24 12:59 Last Admin: 07/06/24 12:59 Dose: 120 ml Documented By: VARSHA Methylprednisolone (Methylprednisolone 125 Mg/2 Ml Vial) 125 mg IV NOW STA Stop: 07/06/24 12:12 Last Admin: 07/06/24 12:26 Dose: 125 mg Documented By: NELDA Medical Decision Making Laboratory Data Attestation: I reviewed the patient's lab results. 07/06/24 12:15 07/06/24 12:15 Lab Results 07/06/24 07/06/24 07/06/24 Range/Units 12:15 12:20 12:23 WBC 10.55 (4.8-10.8) K/ul RBC 4.18 L (4.70-6.10) M/uL Hgb 12.7 L (14.0-18.0) g/dl POC Hgb 13.3 L (14.0-18.0) g/dl Hct 37.6 L (42.0-52.0) % POC Hct 39 L (42-52) % MCV 90.0 (80.0-100.0) fL MCH 30.4 (25.0-34.0) pg MCHC 33.8 (32.0-36.0) g/dL RDW Std Deviation 44.6 (36.4-46.3) fL RDW Coeff of Karon 13.4 (11.5-14.5) % Plt Count 290 (130-400) K/uL MPV 9.6 (9.4-12.4) fL Immature Gran % (Auto) 0.5 % Neut % (Auto) 84.1 % Lymph % (Auto) 6.8 % [place] % (Auto) 6.8 % Eos % (Auto) 1.2 % Baso % (Auto) 0.6 % Neut # (Auto) 8.87 H (1.40-6.50) K/uL Lymph # (Auto) 0.72 L (1.20-3.40) K/uL [place] # (Auto) 0.72 H (0.11-0.59) K/uL Eos # (Auto) 0.13 (0.00-0.50) K/uL Baso # (Auto) 0.06 (0.00-0.20) K/uL Immature Gran # (Auto) 0.05 (0.01-0.20) K/uL ESR (0-20) mm/hr PT 10.4 (9.0-12.0) Seconds INR 1.0 (0.9-1.1) APTT 29 (21-31) Seconds PTT Ratio 1.1 Specimen Type POC pH (7.35-7.45) POC pCO2 (35-46) mmHg POC pO2 (80-95) mmHg POC HCO3 (19-24) cydney/L POC Base Excess (-9-1.8) cydney/L POC ABG O2 Sat (90-95) % POC Sodium 133 L (135-144) mmol/L Sodium 131 L (136-145) mmol/L POC Potassium 4.6 (3.3-5.0) mmol/L Potassium 4.6 (3.5-5.1) mmol/L POC Chloride 97 L (101-112) mmol/L Chloride 98 (98-107) mmol/L Carbon Dioxide 23 (21-32) mmol/L POC Total CO2 22 L (24-31) mmol/L Anion Gap 10 (3-11) POC Anion Gap 19.0 (16-25) mmol/L POC BUN 17 (7-18) mg/dl BUN 18 (6-23) mg/dl Creatinine 1.33 (0.6-1.4) mg/dl POC Creatinine 1.3 (0.6-1.3) mg/dl Est Cr Clr Drug Dosing 49.5 ml/min eGFR 56.44 BUN/Creatinine Ratio 13.5 (10-20) Glucose 304 H* (70-99(Fasting)) mg/dl POC Glucose (other) 303 H (70-99) mg/dl Lactate (0.4-2.0) mmol/L Calcium 9.6 (8.6-10.3) mg/dl POC Ioniz Calcium Jace 1.23 (1.12-1.32) mmol/l Magnesium 1.5 L (1.7-2.4) mg/dl Troponin I High Sens 10.4 (0-20) pg/ml C-Reactive Protein 19.71 H (0-0.5) mg/dl B-Natriuretic Peptide 43 (0-100) pg/ml Lipase 15 (11-82) U/L Procalcitonin (0-0.5) ng/ml Nasal Screen MRSA (PCR) (Negative) SARS-CoV-2 (PCR) NEGATIVE (Negative) Influenza Type A (PCR) Negative (Neg) Influenza Type B (PCR) Negative (Neg) RSV (RT-PCR) Negative (Neg) 07/06/24 07/06/24 07/06/24 Range/Units 12:35 12:45 14:20 WBC (4.8-10.8) K/ul RBC (4.70-6.10) M/uL Hgb (14.0-18.0) g/dl POC Hgb 12.2 L (14.0-18.0) g/dl Hct (42.0-52.0) % POC Hct 36 L (42-52) % MCV (80.0-100.0) fL MCH (25.0-34.0) pg MCHC (32.0-36.0) g/dL RDW Std Deviation (36.4-46.3) fL RDW Coeff of Karon (11.5-14.5) % Plt Count (130-400) K/uL MPV (9.4-12.4) fL Immature Gran % (Auto) % Neut % (Auto) % Lymph % (Auto) % [place] % (Auto) % Eos % (Auto) % Baso % (Auto) % Neut # (Auto) (1.40-6.50) K/uL Lymph # (Auto) (1.20-3.40) K/uL [place] # (Auto) (0.11-0.59) K/uL Eos # (Auto) (0.00-0.50) K/uL Baso # (Auto) (0.00-0.20) K/uL Immature Gran # (Auto) (0.01-0.20) K/uL ESR 77 H (0-20) mm/hr PT (9.0-12.0) Seconds INR (0.9-1.1) APTT (21-31) Seconds PTT Ratio Specimen Type Arterial POC pH 7.38 (7.35-7.45) POC pCO2 37 (35-46) mmHg POC pO2 90 (80-95) mmHg POC HCO3 22 (19-24) cydney/L POC Base Excess -3.0 (-9-1.8) cydney/L POC ABG O2 Sat 97.0 H (90-95) % POC Sodium 131 L (135-144) mmol/L Sodium (136-145) mmol/L POC Potassium 4.6 (3.3-5.0) mmol/L Potassium (3.5-5.1) mmol/L POC Chloride (101-112) mmol/L Chloride (98-107) mmol/L Carbon Dioxide (21-32) mmol/L POC Total CO2 23 L (24-31) mmol/L Anion Gap (3-11) POC Anion Gap (16-25) mmol/L POC BUN (7-18) mg/dl BUN (6-23) mg/dl Creatinine (0.6-1.4) mg/dl POC Creatinine (0.6-1.3) mg/dl Est Cr Clr Drug Dosing ml/min eGFR BUN/Creatinine Ratio (10-20) Glucose (70-99(Fasting)) mg/dl POC Glucose (other) (70-99) mg/dl Lactate (0.4-2.0) mmol/L Calcium (8.6-10.3) mg/dl POC Ioniz Calcium Jace (1.12-1.32) mmol/l Magnesium (1.7-2.4) mg/dl Troponin I High Sens (0-20) pg/ml C-Reactive Protein (0-0.5) mg/dl B-Natriuretic Peptide (0-100) pg/ml Lipase (11-82) U/L Procalcitonin 0.08 (0-0.5) ng/ml Nasal Screen MRSA (PCR) Negative (Negative) SARS-CoV-2 (PCR) (Negative) Influenza Type A (PCR) (Neg) Influenza Type B (PCR) (Neg) RSV (RT-PCR) (Neg) 07/06/24 Range/Units 14:29 WBC (4.8-10.8) K/ul RBC (4.70-6.10) M/uL Hgb (14.0-18.0) g/dl POC Hgb (14.0-18.0) g/dl Hct (42.0-52.0) % POC Hct (42-52) % MCV (80.0-100.0) fL MCH (25.0-34.0) pg MCHC (32.0-36.0) g/dL RDW Std Deviation (36.4-46.3) fL RDW Coeff of Karon (11.5-14.5) % Plt Count (130-400) K/uL MPV (9.4-12.4) fL Immature Gran % (Auto) % Neut % (Auto) % Lymph % (Auto) % [place] % (Auto) % Eos % (Auto) % Baso % (Auto) % Neut # (Auto) (1.40-6.50) K/uL Lymph # (Auto) (1.20-3.40) K/uL [place] # (Auto) (0.11-0.59) K/uL Eos # (Auto) (0.00-0.50) K/uL Baso # (Auto) (0.00-0.20) K/uL Immature Gran # (Auto) (0.01-0.20) K/uL ESR (0-20) mm/hr PT (9.0-12.0) Seconds INR (0.9-1.1) APTT (21-31) Seconds PTT Ratio Specimen Type POC pH (7.35-7.45) POC pCO2 (35-46) mmHg POC pO2 (80-95) mmHg POC HCO3 (19-24) cydney/L POC Base Excess (-9-1.8) cydney/L POC ABG O2 Sat (90-95) % POC Sodium (135-144) mmol/L Sodium (136-145) mmol/L POC Potassium (3.3-5.0) mmol/L Potassium (3.5-5.1) mmol/L POC Chloride (101-112) mmol/L Chloride (98-107) mmol/L Carbon Dioxide (21-32) mmol/L POC Total CO2 (24-31) mmol/L Anion Gap (3-11) POC Anion Gap (16-25) mmol/L POC BUN (7-18) mg/dl BUN (6-23) mg/dl Creatinine (0.6-1.4) mg/dl POC Creatinine (0.6-1.3) mg/dl Est Cr Clr Drug Dosing ml/min eGFR BUN/Creatinine Ratio (10-20) Glucose (70-99(Fasting)) mg/dl POC Glucose (other) (70-99) mg/dl Lactate 2.1 H* (0.4-2.0) mmol/L Calcium (8.6-10.3) mg/dl POC Ioniz Calcium Jace (1.12-1.32) mmol/l Magnesium (1.7-2.4) mg/dl Troponin I High Sens (0-20) pg/ml C-Reactive Protein (0-0.5) mg/dl B-Natriuretic Peptide (0-100) pg/ml Lipase (11-82) U/L Procalcitonin (0-0.5) ng/ml Nasal Screen MRSA (PCR) (Negative) SARS-CoV-2 (PCR) (Negative) Influenza Type A (PCR) (Neg) Influenza Type B (PCR) (Neg) RSV (RT-PCR) (Neg) Imaging Data Attestation: I personally reviewed and interpreted this imaging study as follows: My Impression: Chest x-ray: Left-sided infiltrate CTA of the chest: No PE. Left-sided infiltrate. Radiologist's Impression: Chest CTA 07/06/24 12:07 CT angio chest PE protocol CT DOSE: 813.61 mGy.cm HISTORY: 73 years-old Male with Chest Pain, eval for PE. Acute chest pain and shortness of breath TECHNIQUE: Multiple CTA images of the chest were obtained after the intravenous administration of 119 ml Optiray. Coronal and sagittal MIPS were obtained from the axial data set and were submitted for review. All measurements were obtained according to NASCET criteria. A dose lowering technique was utilized adhering to the principles of ALARA. COMPARISON: Chest radiograph of same day, chest CT 09/23/2023, 04/24/2024, PET/CT 06/13/2023 FINDINGS: CTA: Mild cardiomegaly. Trace pericardial effusion. Extensive coronary artery calcifications. No thoracic aortic aneurysm or dissection. Mild dilation of the pulmonary artery may represent pulmonary hypertension. Left IJ Sivnpv-g-Oawl catheter distal tip terminates within the left brachiocephalic vein just proximal to the confluence with the superior vena cava No pulmonary emboli identified. CT CHEST: Study is degraded by respiratory motion artifacts. 4.6 cm chronic right perihilar consolidation with involvement of the right upper lung redemonstrated. Pulmonary emphysema with bronchial wall thickening. There is a small left pleural effusion. Patchy multifocal left lung airspace opacities with irregular 3.9 Center focus of consolidation within the left lower lobe on image 120. Findings are new from 04/24/2024. Respiratory motion artifact limits the study. Contracted gallbladder. No acute upper abdominal abnormality. No acute fracture. No destructive bone lesions identified. IMPRESSION: 1. Study degraded by respiratory motion artifact. No pulmonary emboli identified. 2. Multifocal airspace opacities throughout the left lung compatible with multifocal pneumonia. Follow-up chest CT after treatment course is needed in order to document resolution. 3. Small left parapneumonic effusion. 4. Unchanged irregular right perihilar/right upper lung consolidation, likely representing treated disease. 5. Emphysema. 6. No lymphadenopathy. ACT 112: Negative or not required by law. The above report was generated using voice recognition software. It may contain grammatical, syntax or spelling errors. Electronically signed by: Phoenix Brewer M.D. 07/06/2024 1:31 PM Chest X-Ray 07/06/24 12:07 XR chest 1V portable HISTORY: 73 years-old Male Chest pain, nonspecific COMPARISON: CTA chest of same day TECHNIQUE: AP view the chest FINDINGS: Cardiac silhouette is within normal limits. Chronic right perihilar/upper lobe opacity compatible with treated disease. Pulmonary emphysema. Multifocal airspace opacities throughout the left lung. Prior resection of the distal right clavicle. Probable chronic healed right clavicular fracture deformity. Unchanged positioning of the left pectoral Aaoftb-o-Ezcm catheter. IMPRESSION: Multifocal left lung pneumonia. ACT 112: Negative or not required by law. The above report was generated using voice recognition software. It may contain grammatical, syntax or spelling errors. Electronically signed by: Phoenix Brewer M.D. 07/06/2024 1:46 PM ECG Data Attestation: I personally reviewed and interpreted this ECG as follows: Interpretation: Sinus rhythm with a rate of 108. PA QRS and QTc intervals are within normal limits. No ST elevation or ST depression MDM Narrative 1206: The patient was evaluated in room A11. A complete history and physical exam was performed Cardiac monitoring: An order was placed for continuous cardiac monitoring. The monitor shows a rate of 110 with sinus tachycardia rhythm interpreted by me Patient found to be hypoxic on room air. Supplemental oxygen was applied to the patient which improved the patient's oxygen saturation. 1300: Chest x-ray shows left-sided pneumonia. Patient be treated with IV antibiotics. 1345: Vital signs stable on supplemental oxygen. Labs are unremarkable. Imaging shows no pulmonary embolus but does show left-sided infiltrate. Patient treated with IV antibiotics and will be admitted to the [facility] team. Impression & Plan Hypoxia, Pneumonia Critical Care Time Critical Care Time: Yes Total Critical Care Time: 41 I have personally spent greater than 41 minutes of critical care time in the direct management of this patient. This includes bedside care, interpretation of diagnostic studies, and testing, discussion with consultants, patient, and family members, and other required patient management activities. This 41 minutes is in excess of all separately billable procedures. Discharge Plan Visit Data Chief Complaint: Shortness of Breath/Dyspnea Stated Complaint: COUGH, SOB, SPITTING UP BLOOD ED Provider: Berto Huizar Discharge Problem: Hypoxia, Pneumonia Patient Disposition: Admitted As Inpatient Discharge Instructions Interventions: ED Discharge Assessment Last Done: 07/06/24 17:17 Discharge Problem: Pneumonia Qualifiers: Pneumonia type: due to unspecified organism Laterality: left Lung location: u nspecified part of lung Qualified Code(s): J18.9 - Pneumonia, unspecified organism
[2024-07-06] MEDS: ALBUT/IPRATROP 3MG/0.5MG NEB 3 ML VIAL INH SCH (19:30)
[2024-07-06 19:41] LABS: Adenovirus PCR Not Detected (NotDetected); Bordetella parapertussis PCR Not Detected (NotDetected); Bordetella pertussis PCR Not Detected (NotDetected); Chlamydia pneumoniae PCR Not Detected (NotDetected); Coronavirus 229E PCR Not Detected (NotDetected); Coronavirus CoV-2 (COVID19)PCR Not Detected (NotDetected); Coronavirus HKU1 PCR Not Detected (NotDetected); Coronavirus NL63 PCR Not Detected (NotDetected); Coronavirus OC43PCR Not Detected (NotDetected); Human Metapneumovirus PCR Not Detected (NotDetected); Influenza A PCR Not Detected (NotDetected); Influenza B PCR Not Detected (NotDetected); Mycoplasma pneumoniae PCR Not Detected (NotDetected); Parainfluenza Virus 1 PCR Not Detected (NotDetected); Parainfluenza Virus 2 PCR Not Detected (NotDetected); Parainfluenza Virus 3 PCR Not Detected (NotDetected); Parainfluenza Virus 4 PCR Not Detected (NotDetected); Respiratory Syncytial VirusPCR Not Detected (NotDetected); Rhinovirus/Enterovirus PCR Not Detected (NotDetected)
[2024-07-06] MEDS: guaiFENesin 600 MG TABCR PO SCH (20:11)
[2024-07-06] MEDS: ENOXAPARIN INJ 40 MG/0.4 ML SYR SQ SCH (20:11)
[2024-07-06] MEDS: cefTRIAXone SODIUM 2,000 MG/50 ML BAG IV SCH (20:12)
--- NOTE | 2024-07-07 05:25 | Electrocardiogram Report ---
Test Reason : Blood Pressure : */* mmHG Vent. Rate : 108 BPM Atrial Rate : 108 BPM P-R Int : 172 ms QRS Dur : 88 ms QT Int : 316 ms P-R-T Axes : 61 74 62 degrees QTcB Int : 423 ms Sinus tachycardia Inferior infarct (cited on or before 23-Apr-2008) Anterolateral infarct (cited on or before 23-Apr-2008) Abnormal ECG When compared with ECG of 12-Aug-2022 20:55, Questionable change in initial forces of Anterolateral leads Confirmed by Shlomo Junior ([id number]) on 07/07/2024 5:25:23 AM Referred By: Confirmed By: Shlomo Junior
[2024-07-07 06:05] LABS: Basophils # (auto) 0.01 K/uL (0.00-0.20); Basophils % (auto) 0.1 %; Hematocrit (blood only) 32.7 % (42.0-52.0); Hemoglobin 11.1 g/dl (14.0-18.0); Immature Granulocytes # (auto) 0.04 K/uL (0.01-0.20); Immature Granulocytes % (auto) 0.4 %; Lymphocytes # (auto) 0.64 K/uL (1.20-3.40); Lymphocytes % (auto) 7.2 %; Mean Corpuscular Hgb Conc 33.9 g/dL (32.0-36.0); Mean Corpuscular Volume 88.4 fL (80.0-100.0); Mean Platelet Volume 9.4 fL (9.4-12.4); Monocytes # (auto) 0.55 K/uL (0.11-0.59); Monocytes % (auto) 6.1 %; Neutrophils # (auto) 7.71 K/uL (1.40-6.50); Neutrophils % (auto) 86.2 %; Platelet Count 245 K/uL (130-400); RDW Standard Deviation 42.3 fL (36.4-46.3); White Blood Count 8.95 K/ul (4.8-10.8)
[2024-07-07 06:21] LABS: BUN Creatinine Ratio 16.2 (10-20); Creatinine Clr Calc Pharmacy 56.2 ml/min; Magnesium 1.9 mg/dl (1.7-2.4); Potassium 5.3 mmol/L (3.5-5.1)
[2024-07-07] MEDS: SERTRALINE HCL 50 MG TABLET PO SCH (08:21)
[2024-07-07] MEDS: LOSARTAN POTASSIUM 50 MG TAB PO SCH (08:22)
[2024-07-07] MEDS: amLODIPine BESYLATE 5 MG TAB PO SCH (08:22)
[2024-07-07] MEDS: ASPIRIN 81 MG ECTAB PO SCH (08:22)
[2024-07-07] MEDS: AZITHROMYCIN 250 MG TAB PO SCH (08:22)
[2024-07-07] MEDS: methylPREDNISolone 40 MG in SYRINGE 0 ML IV SCH (08:23)
[2024-07-07] MEDS: LANTUS PER UNIT CHARGE SQ SCH (09:08)
[2024-07-07] MEDS: PIPERACILLIN/TAZOBACTAM 4.5 GM/100 ML BAG IV STA (10:32)
[2024-07-07] MEDS: PATIROMER CALCIUM SORBITEX 8.4 GM PACK PO SCH (10:36)
--- NOTE | 2024-07-07 10:50 | Pulmonary Consultation ---
Date of Consultation July 07, 2024 Assessment & Plan (1) Multifocal pneumonia: CT findings concerning for multifocal infiltrative process noted throughout the LEFT-sided lung field with attention to the LEFT-sided lung base. The peripheral findings have been infiltrative almost fibrotic looking pattern while the lower lung field has more of a dense consolidation. On review of the patient's records, there does not appear to be chemotherapeutic agents that the patient is on that would likely result in a pneumonitis pattern that could present similarly. Will broaden antibiotic coverage to include Zosyn given the patient's failed outpatient treatment and associated productive cough hemoptysis. Patient would benefit from sputum cultures as well. Continue with Mucinex and azithromycin as well. Patient does not use maintenance inhalers so as needed DuoNebs make sense for now. He is not overtly bronchospastic on exam. (2) Parapneumonic effusion: Bedside ultrasound was performed and demonstrated a small fluid pocket noted in the LEFT-sided lung field. I am unable to appreciate any septations or other concerning findings. That being said, patient may benefit from interrogation of the pleural fluid, particularly in a patient with a concerning history of small cell lung cancer. Did review the potential for thoracentesis versus pigtail catheter placement with the patient. He is agreeable if felt necessary. Upon reassessment of the patient at bedside, he reports that he is not interested in undergoing thoracentesis for fluid interrogation. I had a lengthy discussion with the patient regarding the utility of the procedure, particular in a patient with unilateral effusion in the setting of pneumonialike process in a patient with a history of cell lung cancer at risk for recurrence. Explained to him the utility of fluid cultures as well as cytology. Despite this, the patient still reports that he would not wish to undergo intervention at this time. He would consider it at a later date if there is persistence and/or his symptoms change/worsen. Given the patient's reluctance and this concern effusion, would recommend the patient follow-up in our clinic 2 weeks after discharge for reevaluation. He will likely require follow-up chest CT in the next 6 weeks to 3 months to assess for resolution versus worsening of the interstitial changes noted on presenting CTA. Can be coordinated with our office in hospital follow-up in the next 2 weeks. (3) COPD exacerbation: Likely in the setting of multifocal pneumonia. He is not overtly bronchospastic on exam, but does have coarse breath sounds noted in the LEFT-sided lung field. Can likely titrate down to off of his steroids at this juncture. (4) Acute hypoxic respiratory failure: In the setting of above. Continue incentive spirometry. Would avoid flutter valve and the patient with hemoptysis. Encourage out of bed to chair and activity as tolerated. Titrate down supplemental oxygen to goal saturation of 90%. (5) Hemoptysis: In the setting of multifocal infiltrative findings noted on CT. Appears to be nonmassive at this point with occasional quarter size clots being coughed up at this time. (6) Small cell lung cancer in adult: The patient does have a complex oncologic history with diagnosis of "aggressive neuroendocrine malignancy being approached as SCLC equivalent based on most aggressive portions of the biopsy though with other areas suggesting atypical carcinoid." His initial diagnosis was on 12/01/2023. Staging at diagnosis cTx (T1 vs T3/4 - uncertain if peripheral primary versus primary within conglomerate mediastinal mass) cN2 cM0 "limited" small cell lung cancer. He underwent etoposide/carboplatinum with concomitant radiation with completion of treatments on 02/2023. Patient is continue to follow with cancer care partnership with routine screenings performed at their discretion. Plan Thank you for allowing us to participate in the care of this pleasant patient. Please refer to my attendings documentation for further recommendations at this time. Supervising Physician Co-Signing Physician Notes I separately evaluated the patient and agree with the note as above unless otherwise specified. 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 Now presenting with left lower lobe infiltrate and left lower lobe pleural effusion. These findings are concerning for possible infection and/for malignancy. I discussed with the patient at length regarding sampling of the pleural fluid as this could be quite useful in determining whether there is evidence of empyema or malignancy in the pleural space. I have reiterated to the patient the importance of knowing this information as this will dictate his care moving forward that knowing whether there is potential recurrence of cancer in the pleural space or infection pleural space could dramatically alter his clinical course. I did discuss with the patient that a thoracentesis or chest tube is a relatively minimally invasive procedure and generally well-tolerated. Patient adamantly declines pleural sampling at this time and would simply like to have a follow-up x-ray and ultrasound in 2 weeks after completing a course of antibiotics. I concur with continuing Zosyn and azithromycin at this time. If sputum cultures or blood cultures did not reveal any evidence of pseudomonal organisms and he is clinically improving, then can consider transitioning the patient to oral Augmentin for a total of 2 weeks. Will discontinue methylprednisone as there is no evidence of a COPD exacerbation at present. On exam he is nontoxic-appearing. He has diminished lung sounds in the left lower lobe with some mild crackles. No obvious neurological deficits are seen. His mood and affect seem appropriate at this time. He is on low-flow oxygen. History of Present Illness Reason for Consultation: PNA,lung CA,parapneumonic effusion,hemoptysis Requesting Physician: Dr. Mccabe Attending Physician: Taniya Mccabe MD History of Present Illness Patient is a 73-year-old male with a significant past medical history of COPD, tobacco abuse, lung nodules, and small cell lung cancer who presents to the hospital in the setting of productive cough with associated hemoptysis, shortness of breath, and hypoxia. The patient reports that he had been seen at the [facility], [place] approximately 3 weeks ago. 5 days prior to his appointment, he was noticing some mild increase in wheezing and cough. He had no sputum production at that time. He was placed on a course of prednisone and azithromycin. He states that he felt minimally better after the course of medications, but shortly after developed worsening symptoms including shortness of breath, productive cough, and occasional episodes of hemoptysis. His symptoms have been ongoing for the last few weeks, but have worsened over the last few days. He had contacted the pulmonary office for recommendation, and it was felt best that he present given his concerning symptoms. Upon arrival in the emergency department, the patient was found to be significantly hypoxic at 80% on room air. Additionally, the patient had been complaining of quarter- sized episodes of hemoptysis that have been happening approximately every day at this time. He has had no fevers or chills. No unintentional weight loss. No night sweats. No other concerning symptoms. Patient had concerning findings on his chest CT of multifocal infiltrative changes to the LEFT-sided lung field with concerning parapneumonic effusion. Upon evaluation in room 2842, the patient is awake, alert, and oriented. He reports he is feeling better at this time and much less short of breath. He states that his cough persists and his hemoptysis has improved. He is now saturating well on 2.5 L, however nursing does report that he is saturating the high 90s and she will work on titrating down. Otherwise, the patient offers no new complaints other than described above. The patient does have a complex oncologic history with diagnosis of "aggressive neuroendocrine malignancy being approached as SCLC equivalent based on most aggressive portions of the biopsy though with other areas suggesting atypical carcinoid." His initial diagnosis was on 12/01/2023. Staging at diagnosis cTx (T1 vs T3/4 - uncertain if peripheral primary versus primary within conglomerate mediastinal mass) cN2 cM0 "limited" small cell lung cancer. He underwent etoposide/carboplatinum with concomitant radiation with completion of treatments on 02/2023. Patient is continue to follow with cancer care partnership with routine screenings performed at their discretion. Allergies Allergy/AdvReac Type Severity Reaction Status Date / Time levofloxacin AdvReac Intermediate Hallucinati Verified 07/06/24 14:42 ng atorvastatin AdvReac myalgia Verified 07/06/24 14:42 dulaglutide [From Trulicity] AdvReac Nausea Verified 07/06/24 14:42 empagliflozin AdvReac Elevated Verified 07/06/24 14:42 [From Jardiance] creatinine pravastatin AdvReac myalgia Verified 07/06/24 14:42 Home Medications Medication Instructions Recorded Confirmed Type blood sugar diagnostic (OneTouch #10 ea 06/29/20 05/05/24 History Ultra Blue Test Strip) nitroglycerin 0.4 mg sublingual 1 mg (2.5 x 0.4 mg) sublingual 12/14/21 07/06/24 Rx tablet (Nitrostat) DIRECTED PRN Angina #60 tabs pen needle, diabetic 32 gauge x #100 ea 01/31/22 05/05/24 Rx 5/32" (BD Ultra-Fine Ela Pen Needle) inhalational spacing device #1 ea 10/19/22 05/05/24 Rx (BreatheRite MDI Spacer) cinnamon bark extract 500 mg tablet 500 mg PO QAM 12/25/22 07/06/24 History vit C 250 mg-vit E 90 mg-zinc 40 1 tab PO DAILY 12/25/22 07/06/24 History mg-copper 1 ed-[id number]-ukpjif capsule (PreserVision AREDS-2) sertraline 25 mg tablet 25 mg PO QAM 04/03/23 07/06/24 History Flutter Valve #1 ea 04/04/23 05/05/24 Rx glipizide 10 mg tablet 10 mg PO BID #180 tabs 07/30/23 07/06/24 Rx metformin 1,000 mg tablet 1,000 mg PO BID #180 tabs 10/23/23 07/06/24 Rx albuterol sulfate 90 mcg/actuation 1 - 2 inh inhalation Q4H PRN 02/20/24 07/06/24 Rx aerosol inhaler shortness of breath or wheezing #8.5 grams Levemir FlexPen 100 unit/mL (3 mL) 14 - 16 unit (0.14 - 0.16 mL) 03/11/24 07/06/24 Rx solution subcutaneous insulin pen subcut QAM #15 mL (insulin detemir U-100) losartan 100 mg tablet 100 mg PO QAM #90 tabs 04/27/24 07/06/24 Rx albuterol sulfate 2.5 mg/0.5 mL 2.5 mg (0.5 mL) inhalation Q6H PRN 06/23/24 07/06/24 Rx solution for nebulization shortness of breath or wheezing #30 ea amlodipine 10 mg tablet 10 mg PO QAM 07/06/24 07/06/24 History aspirin 81 mg tablet,delayed 81 mg PO QAM 07/06/24 07/06/24 History release budesonide-formoterol HFA 80 1 inh inhalation BID PRN Shortness 07/06/24 07/06/24 History mcg-4.5 mcg/actuation aerosol Of Breath Or Wheezing inhaler (Symbicort) ipratropium 0.5 mg-albuterol 3 mg 3 ml inhalation BID 07/06/24 07/06/24 History (2.5 mg base)/3 mL nebulization soln Patient History Medical History Right-sided chest pain Status post chemotherapy currently on chemo every 2 weeks Esophagitis Elevated serum creatinine Lung nodule Lung cancer Dizziness Myalgia due to statin Current smoker Skin lesion of face Hearing deficit Chronic obstructive pulmonary disease inhalers prn Abnormal TSH TSH low at 0.28 but Free T4 WNL 04/2022 Diabetic peripheral neuropathy Smokes less than 1/2 pack per day Peyronie's disease High cholesterol HTN (hypertension) Surgical History Port-A-Cath in place (01/16/23) Insertion Access Port with Fluoroscopy, left subclavian (Left) - Santos Acevedo DO History of bronchoscopy 11/201811/30/22 History of lumbar laminectomy History of repair of right rotator cuff History of arthroscopy of left knee History of arthroscopy of right knee meniscus repair Hx of vasectomy History of right inguinal hernia repair History of colonoscopy with polypectomy History of tooth extraction History of heart artery stent 2011 @ [facility] S/P tonsillectomy and adenoidectomy Family History Father , 87yo Diabetes Heart disease Angina pectoris Myocardial infarction Grandmother (Maternal) Colorectal cancer Mother , 80yo Emphysema, unspecified Sister No problems noted. Sister , 3yo Leukemia Sister No problems noted. Sister No problems noted. Sister No problems noted. Sister No problems noted. Son No problems noted. Son No problems noted. Son No problems noted. Daughter No problems noted. Other No family history of adverse response to anesthesia Denies family history of Ovarian cancer Prostate cancer Breast cancer Social History Smoking Status: Never smoker Tobacco Type: Cigarettes Age Started Using Tobacco: 27; Age Quit Using Tobacco: 71; Cigarettes Per Day: 2-3 per day -advised; Second Hand Exposure: No; Do You Dip or Chew Tobacco: No; Tobacco Cessation Education Requested by Patient: No Hx Alcohol Use: No Hx Substance Use: No Preferred Language: Citizen Of [place] Communication Ability: Effective Visual Impairment: No Limitations Hearing Ability: Use of Hearing Aid Crochet Beader Required: No Beliefs That Will Affect Care: None marital status: Current Living Situation: Alone current occupational status: retired 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 [email or web address] How many Children do You have: 0 Other Information That Helps Us Care for You: No Feels Safe at Home: Yes Safety Concerns: Feels Safe At This Time Childhood Exposure to Second-Hand Smoke: Yes Diet: diabetic caffeine: Yes (1 cup/day) during the past year weight has: remained stable Dental Care, Regularly: Yes Physical Activity Frequency: Daily Seatbelt Use: always Sunscreen Use: No Assistive Devices: Glasses Review of Systems Review of Systems: A complete 10 point review of systems was reviewed with the patient with pertinent positives and negatives as per history of present illness. All else were negative. Physical Exam Physical Exam: VITAL SIGNS Vital signs and nursing notes were reviewed. GENERAL 73-year-old male appearing his stated age who is in no acute distress. Communicates well with provider and answers questions appropriately. SKIN Without rashes or lesions. NOSE Midline and without cyanosis. MOUTH/OROPHARYNX Without perioral cyanosis. NECK Neck with FROM. LUNGS Chest wall evaluation demonstrates normal chest wall A:P diameter. Auscultation reveals coarse breath sounds at the LEFT sided lung base. No wheezes appreciated. CARDIAC RRR with S1/S2. No murmur, rubs, or gallops appreciated. ABDOMEN Abdominal inspection demonstrates flat. BS normoactive all four quadrants. No tenderness, palpable masses, or ascites noted. EXTREMITIES Nail clubbing not present. No peripheral cyanosis. No pretibial edema present. +3/5 radial palpated throughout. PSYCH A&Ox3 and cooperates fully with examiner. Pt is very pleasant and interacts well with examiner. Results & Data Results & Data Vital Signs (Past 12 Hours) Vital Signs Temp Pulse Pulse Resp BP BP Pulse Ox 07/07/24 09:36 07/07/24 07:52 36.5 C 84 24 159/89 H 97 07/07/24 07:33 86 15 94 07/07/24 05:45 94 H 07/07/24 03:48 36.7 C 97 H 18 145/88 H 97 07/07/24 00:24 117 H 18 93 07/06/24 23:30 36.9 C 103 H 18 156/85 H 93 O2 Del Method O2 Flow Rate 07/07/24 09:36 Nasal Cannula 3 07/07/24 07:52 Nasal Cannula 3 07/07/24 07:33 Nasal Cannula 3 07/07/24 05:45 07/07/24 03:48 Nasal Cannula 3 07/07/24 00:24 Nasal Cannula 3 07/06/24 23:30 Nasal Cannula 3 PG Care Time/CCT Total # of Minutes Spent Total Time Spent with Patient: Total time spent is greater than 50% in coordination of care (as documented) at patient's floor/unit and/or counseling patient: Coding Level of Care Code 41406 INT INP/OBS CARE MIN Diagnoses Multifocal pneumonia J18.9 Parapneumonic effusion J18.9; J91.8 COPD exacerbation J44.1 Acute hypoxic respiratory failure J96.01 Hemoptysis R04.2 Small cell lung cancer in adult C34.90
--- NOTE | 2024-07-07 12:36 | Pharmacy Report ---
Pharmacy Glycemic Short Note 2 - Date of Service July 07, 2024 - Glycemic Short BSG Results (Last 24 hours): 07/06/24 07/06/24 07/06/24 12:15 12:23 17:52 Glucose 304 H* POC Glucose 185 H POC Glucose (other) 303 H 07/06/24 07/07/24 07/07/24 20:13 05:49 08:24 Glucose 222 H POC Glucose 176 H 179 H POC Glucose (other) 07/07/24 12:02 Glucose POC Glucose 118 H POC Glucose (other) OUTPATIENT ANTIDIABETIC REGIMEN: * Levemir 14-16 units daily (last dose 14 units AM of 07/06) * Glipizide 10mg po bid * Metformin 1000mg po bid HbA1c: 6.7% on 05/05/24 ASSESSMENT: 07/07 * Pt received 40 units total of insulin yesterday * 14 units levemir (at home) * 10 units glargine * 16 units aspart * Fasting BSG high this AM, but trended down nicely before lunch. Put in scaled insulin for this PM. * 40 mg Solu-Medrol, also on azithromycin PO and Rocephin. * Pt ordered T2DM diet. 07/06 * 73 year old male admitted for multifocal pneumonia/sepsis. On arrival to ED, BSG is > 300 (303 mg/dL) despite already having 14 units of Levemir insulin prior to arrival. He then received 125mg iv methylprednisolone x 1, and is now ordered methylprednisolone 40mg iv q 24 hours. * 10units of Lantus x 1 has been ordered for this afternoon, then Lantus 20 units daily starting tomorrow (increase from his home insulin dosing due to presence of steroids.) * Weight based bolus insulin with a stress factor of 3 has been ordered to start this afternoon, then will be AC and HS. PLAN FOR INPATIENT GLYCEMIC CONTROL: * Hold outpatient diabetes medications * Basal insulin * Lantus 20units SQ QAM * Lantus scale 5-10 units QHS * Bolus insulin * NovoLog per scale ACHS or Q6hrs while NPO * Goal Range: Low 110 mg/dL - High 140 mg/dL * Correction Factor: 20 mg/dL/unit * Nutritional / Prandial insulin per carb ratio of 1 unit per 6 grams CHO consumed
[2024-07-07] MEDS: PIPERACILLIN/TAZOBACTAM 4.5 GM/100 ML BAG IV SCH (15:57)
--- NOTE | 2024-07-07 20:05 | Hospitalist Progress Note ---
Date of Service July 07, 2024 Assessment & Plan (1) Multifocal pneumonia: Plan: Worsening SR, productive cough, hemoptysis x 2 weeks CXR on arrival revealed multifocal left lower lung pneumonia Chest CTA without acute pulmonary emboli but with multifocal left sided PNA with parapneumonic effusion Zosyn x 1 given in the ED, then started on rocephin and azithro PULM recommends expanding coverage to Zosyn for now, await sputum cx A.m. CBC, BMP, mag follow sputum cx Consult PULM appreciated regarding h/o lung CA and effusion, concern for recurrence of CA. Pt declining thoracentesis at this time. Wants to repeat scan in the future and if not improved, then pursue more of a workup (2) Sepsis: Plan: Pulmonary source; tachycardic + tachypneic on arrival Lactate 2.1 and went up to 2.9 despite fluids-probably from hypoxia Patient is normotensive/hypertensive Blood cultures drawn-NGTD Procalcitonin normal MRSA swab negative COntinue abx as above (3) Acute hypoxic respiratory failure: Plan: SpO2 80% on RA on arrival Patient is not on supplemental oxygen at baseline Supplemental oxygen as needed to maintain SpO2 89-92% Continuous pulse oximetry 2 step prior to discharge (4) COPD exacerbation: Plan: ruled out as per PULM dc steroids continue prn nebs (5) Diabetes mellitus, type 2: Plan: Last A1c at 6.7% on 05/05/2024 Glucose 30 on admission Hold metformin, glipizide Patient reports that he normally takes Levemir 14u QAM Pharmacy glycemic consult in the setting of high-dose steroids SSI + Lantus T2DM diet BSG ACHS Adjust regimen as needed will not likely need glipizide due to hypoglycemia (6) Hypertension: Plan: Continue amlodipine, losartan Plan CAD-has h/o total RCA occlusion and angioplasty of LCx in 2012-resume home ASA, is statin intolerant, beta herber intolerant Disposition: Acontinued stay MedSurg telemetry, but he is anxious to go home tomorrow, even if sputum cx not reuslted VTE PPx: Lovenox 40 mg SQ q24h being given cautiously in setting of hemoptysis, but high risk given lung CA Admission and Anticipated Discharge Date Admission Date: July 06, 2024 Subjective Pt feeling better, still coughing up sputum but no more blood. No chest pain, feels less SOB. Is anxious to go home tomrorow. Confirms he does not want thoracentesis and understands that this could help determine if he has recurrence of his lung cancer vs parapneumonic effusion/empyema. He thinks this is all because he usually gets bronchitis every year and "this year, I just let it go too far." Tele with NSR, rates 80-90s I discussed his care with PULFransisca TYSON Physical Exam Constitutional: WD/WN, vitals as above Respiratory: normal respiratory effort and + cough Auscultation: + crackles (left base) and + wheezes (bilat exp) Cardiovascular: RRR, no murmur, no edema Gastrointestinal (Abdomen): normal bowel sounds, soft, nontender, no hepatosplenomegaly Psychiatric: A+Ox3, euthymic affect Results & Data Results & Data Vital Signs (Past 12 Hours) Vital Signs Temp Pulse Pulse Resp BP BP Pulse Ox 07/07/24 15:29 36.7 C 104 H 20 169/94 H 91 07/07/24 13:01 106 H 07/07/24 11:31 36.7 C 93 H 18 149/76 H 90 07/07/24 09:36 O2 Del Method O2 Flow Rate 07/07/24 15:29 Nasal Cannula 1.5 07/07/24 13:01 07/07/24 11:31 Nasal Cannula 1.5 07/07/24 09:36 Nasal Cannula 3 Laboratory Results CBC, BMP, blood and sputum cxs reviewed PG Care Time/CCT Total # of Minutes Spent Total Time Spent with Patient: Total time spent is greater than 50% in coordination of care (as documented) at patient's floor/unit and/or counseling patient: Coding Level of Care Code 93487 SUB INP/OBS CARE 2/35MIN Diagnoses Multifocal pneumonia J18.9 Sepsis A41.9 Acute hypoxic respiratory failure J96.01 COPD exacerbation J44.1 Diabetes mellitus, type 2 E11.9 Hypertension I10
[2024-07-07] MEDS: LANTUS PER UNIT CHARGE SC SCH (21:17)
[2024-07-07] MEDS: ALBUT/IPRATROP 3MG/0.5MG NEB 3 ML VIAL INH PRN (21:33)
[2024-07-08 06:33] LABS: Basophils # (auto) 0.02 K/uL (0.00-0.20); Basophils % (auto) 0.2 %; Eosinophils # (auto) 0.09 K/uL (0.00-0.50); Eosinophils % (auto) 0.9 %; Hematocrit (blood only) 32.9 % (42.0-52.0); Hemoglobin 11.1 g/dl (14.0-18.0); Immature Granulocytes # (auto) 0.04 K/uL (0.01-0.20); Immature Granulocytes % (auto) 0.4 %; Lymphocytes # (auto) 0.96 K/uL (1.20-3.40); Lymphocytes % (auto) 9.7 %; Mean Corpuscular Hemoglobin 30.2 pg (25.0-34.0); Mean Corpuscular Hgb Conc 33.7 g/dL (32.0-36.0); Mean Corpuscular Volume 89.4 fL (80.0-100.0); Mean Platelet Volume 9.2 fL (9.4-12.4); Monocytes # (auto) 0.76 K/uL (0.11-0.59); Monocytes % (auto) 7.7 %; Neutrophils # (auto) 8.04 K/uL (1.40-6.50); Neutrophils % (auto) 81.1 %; Platelet Count 263 K/uL (130-400); RDW Coefficient of Variation 13.2 % (11.5-14.5); RDW Standard Deviation 43.4 fL (36.4-46.3); Red Blood Count 3.68 M/uL (4.70-6.10); White Blood Count 9.91 K/ul (4.8-10.8)
[2024-07-08 07:13] LABS: BUN Creatinine Ratio 15.2 (10-20); Creatinine Clr Calc Pharmacy 47.4 ml/min; Potassium 4.5 mmol/L (3.5-5.1)
[2024-07-08] MEDS: LANTUS PER UNIT CHARGE SQ SCH (09:14)
--- NOTE | 2024-07-08 10:17 | Pharmacy Report ---
Pharmacy Glycemic Short Note 2 - Date of Service July 08, 2024 - Glycemic Short BSG Results (Last 24 hours): 07/07/24 07/07/24 07/07/24 12:02 17:08 20:47 Glucose POC Glucose 118 H 194 H 159 H 07/08/24 07/08/24 06:02 08:11 Glucose 178 H POC Glucose 162 H OUTPATIENT ANTIDIABETIC REGIMEN: * Levemir 14-16 units daily (last dose 14 units AM of 07/06) * Glipizide 10mg po bid * Metformin 1000mg po bid HbA1c: 6.7% on 05/05/24 ASSESSMENT: 07/08 * Fermin received 50 units of insulin yesterday (25 units basal) * Fasting BSG this AM acceptable, Solu-Medrol discontinued, ABX continued. Will empirically reduce basal insulin this AM and allow for additional insulin this evening if BSGs are elevated * Will loosen Novolog slightly with lunchtime due to discontinuation of steroids. 07/07 * Pt received 40 units total of insulin yesterday * 14 units levemir (at home) * 10 units glargine * 16 units aspart * Fasting BSG high this AM, but trended down nicely before lunch. Put in scaled insulin for this PM. * 40 mg Solu-Medrol, also on azithromycin PO and Rocephin. * Pt ordered T2DM diet. 07/06 * 73 year old male admitted for multifocal pneumonia/sepsis. On arrival to ED, BSG is > 300 (303 mg/dL) despite already having 14 units of Levemir insulin prior to arrival. He then received 125mg iv methylprednisolone x 1, and is now ordered methylprednisolone 40mg iv q 24 hours. * 10units of Lantus x 1 has been ordered for this afternoon, then Lantus 20 units daily starting tomorrow (increase from his home insulin dosing due to presence of steroids.) * Weight based bolus insulin with a stress factor of 3 has been ordered to start this afternoon, then will be AC and HS. PLAN FOR INPATIENT GLYCEMIC CONTROL: * Hold outpatient diabetes medications * Basal insulin * Lantus 10 units SQ QAM * Lantus 0-10 units SQ HS (see eMAR for additional details) * Bolus insulin * NovoLog per scale ACHS or Q6hrs while NPO * Goal Range: Low 110 mg/dL - High 140 mg/dL * Correction Factor: 25 mg/dL/unit * Nutritional / Prandial insulin per carb ratio of 1 unit per 7 grams CHO consumed
[2024-07-08 12:18] LABS: Calcium 9.3 mg/dl (8.6-10.3); Creatinine Clr Calc Pharmacy 48.7 ml/min
[2024-07-08] MEDS: CARBOHYDRATES FOR HYPOGLYCEMIA PO PRN (12:25)
--- NOTE | 2024-07-08 15:48 | Discharge Summary ---
Discharge Summary Date of Service July 08, 2024 Principal Dx & Hospital Course #1 = Principal Diagnosis (1) Multifocal pneumonia: Worsening SR, productive cough, hemoptysis x 2 weeks CXR on arrival revealed multifocal left lower lung pneumonia Chest CTA without acute pulmonary emboli but with multifocal left sided PNA with parapneumonic effusion Zosyn x 1 given in the ED, then started on rocephin and azithro PULM recommends expanding coverage to Zosyn, await sputum cx Consult PULM appreciated regarding h/o lung CA and effusion, concern for recurrence of CA. Pt declining thoracentesis at this time. Wants to repeat scan in the future and if not improved, then pursue more of a workup Patient was anxious to leave the hospital prior to results of sputum culture returning. Sputum cultures are preliminary is moderate normal michelle. A two-step oxygen test showed he needed 2 L at rest and 5 L with exertion. Arrangements were made for oxygen to be delivered to the hospital prior to discharge He will finish out 5 and half more days of Augmentin. He completed 3 days of azithromycin 500 Mg p.o. once daily He will need repeat chest imaging in the near future-he has a follow-up appointment with pulmonology for next week. (2) Sepsis: Pulmonary source; tachycardic + tachypneic on arrival-now resolved Lactate 2.1 and went up to 2.9 despite fluids-probably from hypoxia Patient is normotensive/hypertensive Blood cultures drawn-remain NGTD Procalcitonin normal MRSA swab negative COntinue abx as above (3) Acute hypoxic respiratory failure: SpO2 80% on RA on arrival Patient is not on supplemental oxygen at baseline Supplemental oxygen as needed to maintain SpO2 89-92%-needs 2 L at rest 5 L with exertion (4) COPD exacerbation: ruled out as per PULM dc steroids continue prn nebs (5) Diabetes mellitus, type 2: Last A1c at 6.7% on 05/05/2024 Resume home medications (6) Hypertension: Continue amlodipine, but hold losartan due to acute kidney injury Check BMP on Saturday and resume losartan by PCP if creatinine improved Acute kidney injury-creatinine bumped to 1.5 on day of discharge and on repeat was down to 1.4-unclear reason-perhaps from acute illness and sepsis Advised to hold losartan repeat BMP on Saturday, stay hydrated Plan CAD-has h/o total RCA occlusion and angioplasty of LCx in 2012-resume home ASA, is statin intolerant, beta herber intolerant Disposition: DC to home VTE PPx: Lovenox 40 mg SQ q24h being given cautiously in setting of hemoptysis, but high risk given lung CA Notes For Next Care Provider Follow-up BMP on Saturday and resume losartan if creatinine back to normal Needs repeat chest imaging in 1 to 2 weeks and close follow-up with pulmonology Medication Changes From Visit Holding losartan Added Augmentin 875/125 mg p.o. twice daily x 5 and half more days Admission HPI Per Admitting Provider Fermin is a 73-year-old male with PMH of small cell lung cancer, T2DM, CAD, congenital absence of one kidney, HLD, HTN, and COPD. He presented on 07/06 for worsening SOB x 2 weeks. Patient reports that the SOB is only with exertion, and does not occur at rest. However, he has been having substantial productive cough x 2 weeks, and developed hemoptysis over the last week. Patient is not on blood thinners. He reports he has pink/yellow sputum mainly in the mornings, and has been taking Mucinex to break this up. His home pulse ox normally reads around SpO2 88-94%. He does not use supplemental oxygen at baseline. No CPAP at night. He is a former smoker (40 years), but reports that he quit. No recent alcohol use. No sick contacts. Patient took his regular morning medication today, including his Levemir 14u; no recent change in medications. He does report that his albuterol inhaler and DuoNeb do help with his symptoms at home. He also used a flutter valve this morning. While he denies orthopnea, he does report that he has coughing fits whenever he lies on his right side. No prior history of DVT/PE to his knowledge. Patient is tachycardic at 106 bpm at time of admission; SpO2 95% on 5L oxymask. ED course: DuoNeb 3 mL Methylprednisolone 125 mg IV Zosyn 4.5 g IV ROS: Patient endorses worsening RS, wheezing, productive cough (yellow / pink sputum), and hemoptysis (mainly in the mornings). Patient denies fever, chills, night-sweats, dizziness/lightheadedness, BARKER, syncope, chest pain, pleuritic CP, SOB at rest, orthopnea, abdominal pain, N/V/D, changes in urinary/bowel habits, dysuria, blood in the urine or stool, or numbness or tingling in the arms or legs. Discharge Exam Constitutional WD/WN, vitals as above Respiratory normal respiratory effort; no cough Auscultation: + crackles (left base) and + wheezes (bilat exp) Cardiovascular RRR, no murmur, no edema Gastrointestinal (Abdomen) normal bowel sounds, soft, nontender, no hepatosplenomegaly Psychiatric A+Ox3, euthymic affect Discharge Plan Discharge Items Patient Disposition: Home - Self-Care Reason For Visit: MULTIFOCAL PNA Discharge Diagnosis: Multifocal pneumonia with parapneumonic effusion Acute on chronic respiratory failure with hypoxia Condition on Discharge: Fair Activity: As commented below Bathing: No limitations Exercise/Sports: As tolerated Non-emergency contact: 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 You will need repeat chest x-ray or chest CT within the next couple of weeks- your travel agent can order this for you. You will need to wear 2 L of oxygen at rest and 5 L of oxygen with exertion Your kidney function is down from your normal. Please stay well-hydrated and hold your losartan. Have your blood work checked on Saturday and you can resume your losartan if the kidney function is back to normal. Your primary care physician can follow-up on this result. Pending Studies at Discharge: Yes (Sputum culture, final blood cultures-no growth to date) Stand-Alone Forms: My [employer], Smoking Cessation Medications and DC Order Prescriptions: New amoxicillin-pot clavulanate 875-125 mg tablet 1 tab PO BID Qty: 11 0RF Continued cinnamon bark extract 500 mg tablet 500 mg PO QAM nitroglycerin [Nitrostat] 0.4 mg tablet, sublingual 1 mg Sublingual DIRECTED PRN (Reason: Angina) Qty: 60 3RF (DME) pen needle, diabetic [BD Ultra-Fine Ela Pen Needle] 32 gauge x 5/32" needle See Rx Instructions .Route Qty: 100 3RF Rx Instructions: As directed to inject insulin once a day (DME) Flutter Valve Device See Rx Instructions .Route Qty: 1 0RF Rx Instructions: As directed glipizide 10 mg tablet 10 mg PO BID Qty: 180 3RF metformin 1,000 mg tablet 1,000 mg PO BID Qty: 180 3RF albuterol sulfate 90 mcg/actuation HFA aerosol inhaler 1 - 2 inh inhalation Q4H PRN (Reason: shortness of breath or wheezing) Qty: 8.5 3RF Levemir FlexPen 100 unit/mL (3 mL) insulin pen 14 - 16 unit subcut QAM Qty: 15 3RF Rx Instructions: or as directed albuterol sulfate 2.5 mg/0.5 mL solution for nebulization 2.5 mg inhalation Q6H PRN (Reason: shortness of breath or wheezing) Qty: 30 0RF (DME) BreatheRite MDI Spacer Spacer See Rx Instructions .MEDSUPPLY Qty: 1 0RF Rx Instructions: As directed sertraline 25 mg tablet 25 mg PO QAM (DME) OneTouch Ultra Blue Test Strip Strip See Rx Instructions .ROUTE .MEDSUPPLY Qty: 10 Rx Instructions: test 1 time daily PreserVision AREDS-2 250-90-40-1 mg capsule 1 tab PO DAILY Rx Instructions: administer with meals aspirin 81 mg Tablet,Delayed Release (Dr/Ec) 81 mg PO QAM ipratropium-albuterol 0.5 mg-3 mg(2.5 mg base)/3 mL solution for nebulization 3 ml inhalation BID amlodipine 10 mg tablet 10 mg PO QAM budesonide-formoterol [Symbicort] 80-4.5 mcg/actuation HFA aerosol inhaler 1 inh inhalation BID PRN (Reason: Shortness Of Breath Or Wheezing) Held losartan 100 mg tablet 100 mg PO QAM Qty: 90 1RF Hold Instructions: Resume on 07/13/24. Hold until after your primary care doctor reviews your blood work for kidney function. Discharge Orders: Discharge Order (Routine); Ordered 07/08/24 Ordered By: Taniya Olea/Other Patient Handouts: Managing Type 2 Diabetes Admission Data Admit Date/Time: 07/06/24 14:42 Attending Provider: Taniya Mccabe Admit Provider: Jeffery Jimenez Primary Care Provider: Kemar Kinney V. Other Providers: Jeffery Jimenez; Nghia Cade Hospital Stay Data Consultations 07/06/24 13:45 ED Decision to Admit Stat 07/07/24 09:41 Consult Pulmonology Routine Diagnostic Imagining Performed 07/06/24 12:07 CT angio chest PE protocol Stat 07/07/24 10:13 sono, invasive monitoring [US point of care ultrasound] Urgent Pending Results Patient Have Any Pending Studies at Discharge: Yes (Sputum culture, final blood cultures-no growth to date) Discharge Instructions Given to Patient (Per Discharging Provider) Please finish out the course of antibiotics with Augmentin for your pneumonia. You will need repeat chest x-ray or chest CT within the next couple of weeks- your travel agent can order this for you. You will need to wear 2 L of oxygen at rest and 5 L of oxygen with exertion Your kidney function is down from your normal. Please stay well-hydrated and hold your losartan. Have your blood work checked on Saturday and you can resume your losartan if the kidney function is back to normal. Your primary care physician can follow-up on this result. Total Time Total Time Spent Total Time Spent (In Minutes): 35 minutes Total Time Includes: Examination of the Patient, Discharge Planning, Medication Reconciliation and Communication With Other Providers (Pulmonology) Coding Level of Care Code 89243 INP/OBS DISCH >30 MIN Diagnoses Multifocal pneumonia J18.9 Sepsis A41.9 Acute hypoxic respiratory failure J96.01 COPD exacerbation J44.1 Diabetes mellitus, type 2 E11.9 Hypertension I10
[2024-07-08 15:57] VITALS: BP 156/93; PULSE 98; RESP 16; TEMP 97.9; O2SAT 94
== END 2024-07-08 16:18 | disposition home or self-care (01) | DRG 871 ==
LOC: ED 12:01 → 2N 14:42 → SUATTDRO 14:42 → 2N 17:17